=== PATIENT | male | born 1940 | race Caucasian/White ===

== ENCOUNTER 2020-06-06 15:36 | Outpatient (REF) | payer MEDICARE, SELFPAY ==
[2020-06-06 17:02] LABS: MANUAL DIFF FLAG NO
[2020-06-06 17:07] LABS: Basophils Absolute Auto 0.1 X10*3/uL (0.0-0.2); Basophils Percent Auto 0.6 % (0-2); Eosinophils Absolute Auto 0.2 X10*3/uL (0.0-0.4); Eosinophils Percent Auto 1.9 % (0-4); Hematocrit 45.9 % (42-52); Hemoglobin 15.2 g/dl (14.0-18.0); Imm Gran Abs Auto 0.03 X10*3/uL (0.00-0.03); Imm Gran Pct Auto 0.3 % (0.0-0.4); Lymphocytes Absolute Auto 2.3 X10*3/uL (1.2-4.9); Lymphocytes Percent Auto 25.8 % (20-40); Mean Corpuscular HGB Conc 33.1 g/dl (31.0-36.0); Mean Corpuscular Volume 93.7 fL (80-98); Monocytes Absolute Auto 0.9 X10*3/uL (0.1-1.2); Monocytes Percent Auto 10.4 % (2-11); Neutrophils Absolute Auto 5.3 X10*3/uL (2.0-8.3); Platelet Count 211 X10*3/uL (160-400); White Blood Count 8.7 X10*3/uL (4.8-10.8)
[2020-06-06 17:26] LABS: B Type Natriuretic Peptide 55 pg/mL (<100)
[2020-06-06 17:28] LABS: Alanine Aminotransferase 15 U/L (0-40); Albumin Level 4.1 g/dL (3.5-5.0); Alkaline Phosphatase 56 U/L (39-117); Anion Gap 10 (12-20); Aspartate Amino Transferase 18 U/L (5-37); Bilirubin Total 0.8 mg/dL (0.0-1.0); Blood Urea Nitrogen 21 mg/dL (9-16); Calcium 8.8 mg/dL (8.4-10.2); Carbon Dioxide 26 mmol/L (22-29); Chloride 105 mmol/L (96-108); Estimated Glomerular Filt Rate > 60; Glucose Random 81 mg/dL (60-115); Potassium 4.3 mmol/l (3.3-5.1); Sodium 137 mmol/L (135-145); Total Protein 6.7 g/dL (6.5-8.0)
== END 2020-06-06 15:37 | disposition home or self-care (01) ==
LOC: HO.LAB 15:36
PROVIDERS: PCP Internal Medicine Medical Oncology; Visit Provider Internal Medicine Medical Oncology
DX: I10 Essential (primary) hypertension (principal); E66.9 Obesity, unspecified; E78.5 Hyperlipidemia, unspecified; J44.9 Chronic obstructive pulmonary disease, unspecified; Z86.59 Personal history of other mental and behavioral disorders
CPT/HCPCS: 36415; 80053; 83880; 85025

== ENCOUNTER → 2020-07-02 09:36 | Outpatient (BNVA) | payer MEDICARE, SELFPAY | PROVIDERS: PCP Internal Medicine Medical Oncology; Visit Provider Internal Medicine | DX: R06.00 Dyspnea, unspecified (principal) | CPT/HCPCS: 99202 ==

== ENCOUNTER 2020-07-09 14:04 | Outpatient (REF) | payer MEDICARE, SELFPAY ==
--- NOTE | 2020-07-09 | PFT_ITS ---
Forced vital capacity, FEV1, [id number], and MVV are all normal. Post bronchodilator therapy, there is no significant change. Total lung capacity and residual volume normal. Diffusion capacity normal. CONCLUSION: Normal pulmonary function test. MD DAYNA Dykes/NEELAM / [id number]
== END 2020-07-09 14:05 | disposition home or self-care (01) ==
LOC: HO.RESP 14:04
PROVIDERS: PCP Internal Medicine Medical Oncology; Visit Provider Internal Medicine Medical Oncology
DX: R06.02 Shortness of breath (principal); J44.9 Chronic obstructive pulmonary disease, unspecified; I10 Essential (primary) hypertension; E66.9 Obesity, unspecified
CPT/HCPCS: 94060; 94727; 94729

== ENCOUNTER → 2020-07-30 13:54 | Outpatient (REF) | payer MEDICARE, SELFPAY ==
--- NOTE | 2020-07-30 14:00 | CA_ITS ---
Transthoracic Echocardiogram Patient (Last, First, Middle): Jed Weinstein, Gender: Male Date of : 1940 Age: 79 Procedure Date: 07/30/2020 Procedure Type: Transthoracic Echocardiogram Location: OP Height: 180.34 cm Weight: 97.52 kg BSA: 2.17 m2 Heart Rate: bpm BP: 120 / 52 mmHg Credit Collector: Referring MD: Franky Oro MD Symptoms: I10 HTN, J44.9 COPD,R06.02 SOB E66.9 OBESITY Study Quality: Good ECG Rhythm: Sinus Conclusions: - The left ventricular systolic function is normal. The visually estimated ejection fraction is between 60-65%. - There is mild calcification of the aortic valve. - No obvious valvular pathology seen on this study. Findings Left Ventricle Normal left ventricular cavity size. There is normal left ventricular wall thickness. The left ventricular systolic function is normal. The visually estimated ejection fraction is between 60-65%. There is no evidence of regional wall motion abnormalities. Diastolic function is normal for age. Right Ventricle Normal right ventricular cavity size and systolic function. Atria The left atrium is mildly dilated. The right atrium is normal in size. Aortic Valve There is a normal trileaflet aortic valve. There is mild calcification of the aortic valve. There is no aortic valve stenosis. There is no aortic valve regurgitation. Mitral Valve The mitral valve appears normal. There is trace mitral valve regurgitation. There is no mitral valve stenosis. Pulmonic Valve The pulmonic valve was not well visualized. Tricuspid Valve Normal tricuspid valve structure. There is trace tricuspid valve regurgitation. The pulmonary artery systolic pressure is normal. Great Vessels The aortic annulus, sinuses of valsalva, asc aorta, and aortic arch are normal in size. Venous The inferior vena cava is normal in size and collapses greater than 50% with inspiration. Pericardium/Pleural There is no evidence of pericardial effusion. Prior Study Comparison No prior study available for comparison. Recommendations, Care & Conclusions No obvious valvular pathology seen on this study. Measurements 2D Linear Measurements RVIDd: 3.34 RVIDd Index: 1.54 IVSd: 0.99 0.6-0.9/0.6-1.0 cm LVIDd: 5.56 3.9-5.3/4.2-5.9 cm LVIDd Index: 2.56 2.4-3.2/2.2-3.1 cm/m2 LVIDs: 3.30 2.0-3.6 cm LVPWd: 1.21 0.7-1.1 cm Ao Root: 3.50 2.1-3.5 cm LA Diam: 4.60 2.7-3.8/3.0-4.0 cm LAIDs Index: 2.12 1.5-2.3 cm/m2 LV Mass: 306.29 67-162/88-224 g LV Mass Index: 141.15 43-95/49-115 g/m2 LVOT Diam: 2.20 3.0+(-)1.3 cm 2D Systolic Function EF 4C: 59.20 >55% EF 2C: 57.60 >55% EF BiP: 58.30 >55% Mitral Valve MV Pk E: 0.84 MV PK A: 0.69 MV Decel Time: 288.00 E/A: 1.20 E'Lateral: 8.05 E'Medial: 6.64 E/E' Med: 12.60 E/E' Lat: 10.40 Aortic Valve AoV Pk Brandon: 1.95 AoV Mn Brandon: 1.44 AoV VTI: 0.42 AoV Pk Grad: 15.00 Aov Mn Grad: 9.00 LOLA Cont.VTI: 2.31 LVOT LVOT Pk Brandon: 1.29 LVOT Mn Brandon: 0.78 LVOT VTI: 0.25 LVOT Pk Grad: 7.00 LVOT Mn Grad: 3.00 LVOT Diam: 2.20 LVOT Area: 3.80 Diastolic Function MV Pk E: 0.84 MV Pk A: 0.69 E/A: 1.20 E'Medial: 6.64 E/E' Med: 12.60 E' Laterial: 8.05 E/E' Lat: 10.40 Tricuspid Valve TR Pk Brandon: 2.36 TR Pk Grad: 22.00 RA Press: 3.00 RVSP: 25.00 Great Vessels Aorta Ao Root-2D: 3.50 2.0-3.7 cm Ao Asc: 3.50 2.1-3.4 cm Ao Arch: 2.90 Updated in Other Vendor System with Status of Final Eyad Begum MD electronically signed on 07/31/2020 11:08:11 AM with status of Final
== END ==
LOC: HO.CARD 13:54
PROVIDERS: PCP Internal Medicine Medical Oncology; Visit Provider Internal Medicine Medical Oncology
DX: R06.02 Shortness of breath (principal); I10 Essential (primary) hypertension; J44.9 Chronic obstructive pulmonary disease, unspecified; E66.9 Obesity, unspecified
CPT/HCPCS: 93306

== ENCOUNTER → 2020-08-09 10:16 | Outpatient (BNVA) | payer MEDICARE, SELFPAY | PROVIDERS: PCP Internal Medicine Medical Oncology; Referring Provider Internal Medicine Medical Oncology; Visit Provider Internal Medicine | DX: R06.00 Dyspnea, unspecified (principal) | CPT/HCPCS: 99212 ==

== ENCOUNTER 2021-01-04 09:52 | Emergency (ER) | payer MEDICARE, SELFPAY ==
--- NOTE | ~2021-01-04 | XR_ITS ---
EXAMINATION: CHEST AND LEFT SHOULDER. CLINICAL INFORMATION: SOB. Left shoulder pain.. COMPARISON: None TECHNIQUE: Chest one view. Left shoulder 3 views. FINDINGS: Chest: The lungs are well-expanded and clear of acute process. Heart size and pulmonary vascularity is normal. There is mild spondylosis of dorsal spine. No lytic process. Left shoulder: There is mild reduction of glenohumeral joint space in AC joint space with periapical spurring. No visible acute fracture or dislocation seen. The soft tissues are normal. XR/XR chest 1V IMPRESSION: Unremarkable chest exam. Mild degenerative changes left shoulder joint. No acute fracture, dislocation or loose bodies.
--- NOTE | ~2021-01-04 | XR_ITS ---
EXAMINATION: CHEST AND LEFT SHOULDER. CLINICAL INFORMATION: SOB. Left shoulder pain.. COMPARISON: None TECHNIQUE: Chest one view. Left shoulder 3 views. FINDINGS: Chest: The lungs are well-expanded and clear of acute process. Heart size and pulmonary vascularity is normal. There is mild spondylosis of dorsal spine. No lytic process. Left shoulder: There is mild reduction of glenohumeral joint space in AC joint space with periapical spurring. No visible acute fracture or dislocation seen. The soft tissues are normal. XR/XR shoulder LT min 2V IMPRESSION: Unremarkable chest exam. Mild degenerative changes left shoulder joint. No acute fracture, dislocation or loose bodies.
--- NOTE | 2021-01-04 10:18 | ECG_ITS ---
Test Reason : WEAKNESS Blood Pressure : / mmHG Vent. Rate : 097 BPM Atrial Rate : 097 BPM P-R Int : 164 ms QRS Dur : 086 ms QT Int : 322 ms P-R-T Axes : 036 -25 036 degrees QTc Int : 408 ms Normal sinus rhythm Normal ECG No previous ECGs available Referred By: Loni Guan Electronically Signed By:Jalil Liao
--- NOTE | 2021-01-04 10:20 | ED_ITS ---
HPI - Weakness General Chief complaint: General Medical Stated complaint: MULTI COMPLAINTS Time Seen by Provider: 01/04/21 10:18 History of Present Illness HPI Narrative: Patient is 80 years old no cardiac history. Positive history of hypertension. Presented today with having pain to the left shoulder. It is worse with movement. Patient also complaining of pain to the right shoulder but not as severe. No focal chest pain. Feels very weak and tired. Patient claims he is not sleeping well. Feels no new leg swelling. No abdominal pain. No changes in voice. Positive generalized malaise. Patient denies any changes in medication. No vomiting. No diarrhea. No new medication. Related Data Home Medications Medication Instructions Recorded Confirmed bupropion HCl 100 mg tablet 100 mg PO BID 07/02/20 cod liver oil 1 cap PO DAILY 07/02/20 flu vacc 2019-21(65yr ml IM 07/02/20 up)-MF59C(PF) 60 mcg(15 mcgx4)/0.5 mL IM syringe latanoprost 0.005 % eye drops 1 drp OPHTHALMIC (EYE) BEDTIME 07/02/20 lisinopril 20 mg tablet 20 mg PO DAILY 07/02/20 vit C 250 mg-vit E 90 mg-zinc 40 1 tab PO BID 07/02/20 mg-copper 1 [id number] capsule Allergies Allergy/AdvReac Type Severity Reaction Status Date / Time No Known Allergies Allergy Verified 08/09/20 10:33 Review of Systems Review of Systems: Constitutional: No Weight loss, No Fever, No Chills, No Night Sweats, positive Fatigue, No Malaise ENT/Mouth: No Hearing loss, No Ear Pain, No Nasal Congestion, No Sinus Pain, No Hoarseness, No sore throat, No Rhinorrhea, No Swallowing Difficulty Eyes: No Eye Pain, No Swelling, No Redness, No Foreign Body, No Discharge, No Vision Changes Cardiovascular: No Chest Pain, No SOB, No Dyspnea on Exertion, No Orthopnea, No Edema, No Palpitations Respiratory: No Cough, No Sputum, No Wheezing, No Smoke Exposure, No Dyspnea Gastrointestinal: No Nausea, No Vomiting, No Diarrhea, No Constipation, No abdominal Pain, No Hematochezia, No Melena Genitourinary: no irregular bleeding, No Dysuria, No Urinary Frequency, No Hematuria, No Urinary Incontinence, No Urgency, No Flank Pain, No Urinary Flow Changes, No Hesitancy Musculoskeletal: Positive joint pain, No Myalgias, No Joint Swelling Skin: No Skin Lesions, No rash Neuro: No Weakness, No Numbness, No Paresthesias, No Loss of Consciousness, No Dizziness, No Headache Psych: No Anxiety/Panic, No Depression, No SI/HI/AH/VH, No Social Issues, Heme/Lymph: No Bruising, No Bleeding,No Lymphadenopathy Endocrine: No Polyuria, No Polydipsia, No Temperature Intolerance [facility] Past Medical History Attestation statement: The following information was validated with the patient. Medical History Dyspnea on exertion Social History Social History Patient Tobacco Use Status: Never used Tobacco Use of substances other than those prescribed or required for medical reasons: No Advance Directives: No Advance Directives Information Provided: Yes Physical Exam Vital Signs: Vital Signs: Last Vital Signs Temp 99.8 F 01/04/21 12:57 Pulse 100 01/04/21 12:57 Resp 24 H 01/04/21 12:57 BP 100/58 L 01/04/21 12:57 Pulse Ox 97 01/04/21 12:57 Body Mass Index 28.7 Appearance: Alert. Oriented X3. No acute distress. Eyes: Pupils equal, round and reactive to light. ENT: Pharynx normal. Neck: Normal inspection. Neck supple. No lymph nodes noted. No crepitus CVS: Normal heart rate and rhythm. Pulses normal. Normal S1 and S2 Respiratory: No respiratory distress. Breath sounds normal. No Wheezing. No rales Abdomen: Soft and nontender. No rigidity. No distention. good BS x4 Skin: Skin warm and dry. Normal skin color. Normal skin turgor. Extremities: No lower extremity edema. Neurovascular intact to all extremities. No Lacerations. No Rash. Good range of motion in bilateral right and left shoulder. Sensation over the deltoid intact. Distally neurovascularly intact. Pain reproducible with movement of the left shoulder. Neuro: Oriented X 3. No motor deficit. No sensory deficit. Moving all extermities. No slurred speech MDM - Weakness MDM Narrative Medical decision making narrative: Patient's white count was normal. Urine showed no evidence of infection. Patient's electrolyte was normal baseline BUN and creatinine. Chest x-ray showed no focal infiltrate. Patient's coronavirus test was negative. Patient's x-ray of the shoulder was negative. Patient's TSH was normal. No evidence for hypo thyroid. Patient's EKG is normal. First set of troponin is negative patient's symptoms ongoing for greater than 6 hours unlikely cardiac in origin with a poor history. Currently in stable condition will discharge patient home. Lab Data Result diagrams: 01/04/21 11:29 01/04/21 11:29 Labs: Lab Results 01/04/21 01/04/21 01/04/21 Range/Units 11:28 11:29 11:29 WBC 8.5 (4.8-10.8) X10*3/uL RBC 4.73 (4.60-5.80) X10*6/uL Hgb 14.8 (14.0-18.0) g/dl Hct 44.0 (42-52) % MCV 93.0 (80-98) fL MCH 31.3 (27.0-33.0) pg MCHC 33.6 (31.0-36.0) g/dl RDW 13.1 (11.0-16.0) % Plt Count 131 L D (160-400) X10*3/uL MPV 9.8 (9.4-12.4) fL Immature Gran % (Auto) 0.4 (0.0-0.4) % Neut % (Auto) 62.3 (45-73) % Lymph % (Auto) 21.8 (20-40) % [place] % (Auto) 15.3 H (2-11) % Eos % (Auto) 0.0 (0-4) % Baso % (Auto) 0.2 (0-2) % Lymph # (Auto) 1.9 (1.2-4.9) X10*3/uL [place] # (Auto) 1.3 H (0.1-1.2) X10*3/uL Eos # (Auto) 0.0 (0.0-0.4) X10*3/uL Baso # (Auto) 0.0 (0.0-0.2) X10*3/uL Abs Immat Gran (auto) 0.03 (0.00-0.03) X10*3/uL Absolute Neuts (auto) 5.3 (2.0-8.3) X10*3/uL Absolute Nucleated RBC 0.000 (0.0-0.012) X10*3/uL Nucleated RBC % (auto) 0.0 (0.0-0.2) /100WBC Smear Tech's Comments VERIFIED Hold Blue Top SEE NOTE Sodium (135-145) mmol/L Potassium (3.3-5.1) mmol/L Chloride (96-108) mmol/L Carbon Dioxide (22-29) mmol/L Anion Gap (12-20) BUN (9-16) mg/dL Creatinine (0.5-1.4) mg/dL Estim Creat Clear Calc Estimated GFR Random Glucose (60-115) mg/dL Calcium (8.4-10.2) mg/dL Troponin I High Sens (<3.5-35.0) ng/L B-Natriuretic Peptide (<100) pg/mL TSH (0.32-4.0) uIU/mL Urine Color DARK YELLOW Urine Appearance CLEAR Urine pH 6.0 (5.0-8.0) Ur Specific [place] 1.025 (1.005-1.025) Urine Protein 2+ H (NEG-TRACE) MG/DL Urine Glucose (UA) NEG (NEG) MG/DL Urine Ketones 15 (NEG) MG/DL Urine Blood NEG (NEG) Urine Nitrite NEG (NEG) Ur Leukocyte Esterase NEG (NEG) Urine RBC 0 (0) /HPF Urine WBC 0 (0-4) /HPF Ur Squamous Epith Cells NONE /LPF Urine Bacteria NONE /LPF Hyaline Casts 0-2 /LPF Urine Mucus 2+ /LPF Coronavirus (PCR) (Negative) SARS-CoV-2 (PCR) Influenza Type A (PCR) (Negative) Influenza Type B (PCR) (Negative) RSV RNA Qual (PCR) (Negative) 01/04/21 01/04/21 01/04/21 Range/Units 11:29 11:29 11:42 WBC (4.8-10.8) X10*3/uL RBC (4.60-5.80) X10*6/uL Hgb (14.0-18.0) g/dl Hct (42-52) % MCV (80-98) fL MCH (27.0-33.0) pg MCHC (31.0-36.0) g/dl RDW (11.0-16.0) % Plt Count (160-400) X10*3/uL MPV (9.4-12.4) fL Immature Gran % (Auto) (0.0-0.4) % Neut % (Auto) (45-73) % Lymph % (Auto) (20-40) % [place] % (Auto) (2-11) % Eos % (Auto) (0-4) % Baso % (Auto) (0-2) % Lymph # (Auto) (1.2-4.9) X10*3/uL [place] # (Auto) (0.1-1.2) X10*3/uL Eos # (Auto) (0.0-0.4) X10*3/uL Baso # (Auto) (0.0-0.2) X10*3/uL Abs Immat Gran (auto) (0.00-0.03) X10*3/uL Absolute Neuts (auto) (2.0-8.3) X10*3/uL Absolute Nucleated RBC (0.0-0.012) X10*3/uL Nucleated RBC % (auto) (0.0-0.2) /100WBC Smear Tech's Comments Hold Blue Top Sodium 137 (135-145) mmol/L Potassium 4.5 (3.3-5.1) mmol/L Chloride 101 (96-108) mmol/L Carbon Dioxide 25 (22-29) mmol/L Anion Gap 16 (12-20) BUN 21 H (9-16) mg/dL Creatinine 1.35 (0.5-1.4) mg/dL Estim Creat Clear Calc 49.4 Estimated GFR 51 Random Glucose 107 (60-115) mg/dL Calcium 8.9 (8.4-10.2) mg/dL Troponin I High Sens 9.4 (<3.5-35.0) ng/L B-Natriuretic Peptide 69 (<100) pg/mL TSH 0.37 (0.32-4.0) uIU/mL Urine Color Urine Appearance Urine pH (5.0-8.0) Ur Specific [place] (1.005-1.025) Urine Protein (NEG-TRACE) MG/DL Urine Glucose (UA) (NEG) MG/DL Urine Ketones (NEG) MG/DL Urine Blood (NEG) Urine Nitrite (NEG) Ur Leukocyte Esterase (NEG) Urine RBC (0) /HPF Urine WBC (0-4) /HPF Ur Squamous Epith Cells /LPF Urine Bacteria /LPF Hyaline Casts /LPF Urine Mucus /LPF Coronavirus (PCR) NEGATIVE (Negative) SARS-CoV-2 (PCR) Cancelled Influenza Type A (PCR) NEGATIVE (Negative) Influenza Type B (PCR) NEGATIVE (Negative) RSV RNA Qual (PCR) NEGATIVE (Negative) Discharge Plan Discharge Clinical Impression: Acute shoulder pain Patient Disposition: Home, Self-Care Instructions: Arthralgia (ED) Prescriptions: No Action bupropion HCl 100 mg tablet 100 mg PO BID RF: 0 lisinopril 20 mg tablet 20 mg PO DAILY RF: 0 latanoprost 0.005 % drops 1 drp ophthalmic (eye) BEDTIME RF: 0 PreserVision AREDS-2 [id number] gd-bcmj-mc-mg capsule 1 tab PO BID RF: 0 cod liver oil Capsule 1 cap PO DAILY RF: 0 Fluad Quad 2020-21(65y up)(PF) 60 mcg (15 mcg x 4)/0.5 mL syringe IM RF: 0 Referrals: Franky Oro MD [Primary Care Provider] - 2 days
[2021-01-04 10:51] VITALS: BP 112/54; PULSE 100; RESP 16; TEMP 37.7; O2SAT 97; BMI 28.7
[2021-01-04 11:37] LABS: Imm Gran Abs Auto 0.03 X10*3/uL (0.00-0.03); MANUAL DIFF FLAG SCAN; PLT CLUMP 1; SCAN SMEAR FLAG 1
[2021-01-04 11:39] VITALS: BP 104/56; PULSE 98; RESP 18; TEMP 37.3; O2SAT 97
[2021-01-04 11:39] LABS: Basophils Percent Auto 0.2 % (0-2); Hemoglobin 14.8 g/dl (14.0-18.0); Imm Gran Pct Auto 0.4 % (0.0-0.4); Lymphocytes Absolute Auto 1.9 X10*3/uL (1.2-4.9); Lymphocytes Percent Auto 21.8 % (20-40); Mean Corpuscular HGB Conc 33.6 g/dl (31.0-36.0); Mean Corpuscular Hemoglobin 31.3 pg (27.0-33.0); Mean Platelet Volume 9.8 fL (9.4-12.4); Monocytes Absolute Auto 1.3 X10*3/uL (0.1-1.2); Monocytes Percent Auto 15.3 % (2-11); Neutrophils Absolute Auto 5.3 X10*3/uL (2.0-8.3); Neutrophils Percent Auto 62.3 % (45-73); Platelet Count 131 X10*3/uL (160-400); Red Blood Count 4.73 X10*6/uL (4.60-5.80); Red Cell Distribution Width 13.1 % (11.0-16.0); White Blood Count 8.5 X10*3/uL (4.8-10.8)
[2021-01-04 11:42] LABS: Glucose Urine UA NEG (NEG); Leukocyte Esterase Urine NEG (NEG); Nitrite Urine NEG (NEG); Specific Gravity - Urine 1.025 (1.005-1.025); Urine Blood NEG (NEG); Urine Ketones 15 MG/DL (NEG); Urine Protein 2+ MG/DL (NEG-TRACE)
[2021-01-04 11:47] LABS: Appearance Urine CLEAR; Color Urine DARK YELLOW
[2021-01-04 11:58] LABS: Anion Gap 16 (12-20); Blood Urea Nitrogen 21 mg/dL (9-16); Calcium 8.9 mg/dL (8.4-10.2); Carbon Dioxide 25 mmol/L (22-29); Chloride 101 mmol/L (96-108); Creatinine Clr Calc Pharmacy 49.4; Estimated Glomerular Filt Rate 51; Glucose Random 107 mg/dL (60-115); Potassium 4.5 mmol/L (3.3-5.1); Sodium 137 mmol/L (135-145)
[2021-01-04 12:03] LABS: SLIDE REVIEW VERIFIED
[2021-01-04 12:04] LABS: B Type Natriuretic Peptide 69 pg/mL (<100); Troponin-I High Sensitivity 9.4 ng/L (<3.5-35.0)
[2021-01-04 12:19] LABS: TSH reflex Free T4 0.37 uIU/mL (0.32-4.0)
[2021-01-04 12:21] LABS: Hyaline Casts Urine 0-2 /LPF; Mucus Urine 2+ /LPF; RBC Urine 0 /HPF (0); WBC Urine 0 /HPF (0-4)
[2021-01-04 12:37] LABS: Influenza A PCR NEGATIVE (Negative); Influenza B PCR NEGATIVE (Negative); Resp Syncy Virus RNA Qual PCR NEGATIVE (Negative); SARS COV2 PCR INHOUSE NEGATIVE (Negative)
[2021-01-04 12:57] VITALS: BP 100/58; PULSE 100; RESP 24; TEMP 37.7; O2SAT 97
== END 2021-01-04 14:30 | disposition home or self-care (01) ==
PROVIDERS: Emergency Provider Emergency Medicine Emergency Medical Services; PCP Internal Medicine Medical Oncology
DX: M25.512 Pain in left shoulder (principal); Z20.822 Contact with and (suspected) exposure to COVID-19; R53.81 Other malaise; I10 Essential (primary) hypertension
CPT/HCPCS: 0241U; 36415; 71045; 73030; 80048; 81001; 83880; 84443; 84484; 85025; 93005; 99284; U0003; U0005

== ENCOUNTER → 2021-01-18 12:34 | Outpatient (BNVA) | payer MEDICARE, SELFPAY | PROVIDERS: Visit Provider Physician Assistant | DX: M54.12 Radiculopathy, cervical region (principal) | CPT/HCPCS: 99202 ==

== ENCOUNTER → 2021-01-28 13:52 | Outpatient (BNVA) | payer MEDICARE, SELFPAY | PROVIDERS: Visit Provider Internal Medicine | DX: R06.00 Dyspnea, unspecified (principal); I10 Essential (primary) hypertension | CPT/HCPCS: 99202 ==

== ENCOUNTER → 2021-02-11 07:53 | Outpatient (REF) | payer MEDICARE, SELFPAY ==
--- NOTE | ~2021-02-11 | NM_ITS ---
EXERCISE MYOCARDIAL PERFUSION STUDY INDICATION: Shortness of breath, assess for coronary disease and ischemia TECHNIQUE: The patient was brought in for an exercise perfusion study on 02/11/2021. Patient performed exercise as per Stan protocol and was injected 35 mCi of sestamibi once target heart rate was achieved. Images were obtained using the SPECT gamma camera interlaced with the gating device. Images were obtained in supine position. Resting perfusion study was performed on 02/13/2021. Patient was administered 35 mCi of sestamibi intravenously at rest. Images were then obtained in supine position. Total DLP 102mGy-cm. Images were processed with the software and compared side to side in short axis, horizontal long axis and vertical long axis views. FINDINGS: Raw images were reviewed. The stress perfusion study showed diminished tracer uptake along the inferior wall from the basal to mid portions. With CT attenuation correction there is significant improvement testing diaphragmatic attenuation artifact. The gated study shows normal LV systolic function with calculated LVEF of 69%. LV cavity is normal in size. The gated study shows normal wall thickening and contraction of segments. Resting study shows diminished tracer uptake along the inferior wall. With CT attenuation correction, there is improvement suggesting diaphragmatic artifact. Gating at rest reveals normal wall motion with ejection fraction at 55%. The findings are consistent with fixed reversible defect likely from diaphragmatic attenuation artifact. NM/NM cardiolite stress test IMPRESSION: 1. Myocardial perfusion imaging study shows likely normal myocardial perfusion. Fixed inferior defect suspected to be from diaphragmatic attenuation artifact. 2. Gated LVEF is 69% during stress and 55% during rest.. 3. Transient ischemic dilatation not present. EKG component of the test reported separately.
--- NOTE | 2021-02-11 07:59 | CA_ITS ---
Acquisition Time: 2021-02-11 08:04:27 Total Exercise Time: 00:05:01 Test Indications: Dyspnea Medications: LISINOPRIL BUPROPION Protocol: JACQUELYN Max HR: 206 BPM 147% of Pred: 140 BPM Max BP: 148/038 mmHG Max Work Load: 4.6 METS Exercise stress nuclear using Jacquelyn protocol. Test motified as pt was unable to walk faster on the treadmill. Pt tolerated well, denies any anginal sx. EKG with no ischemic changes suggestive of ischemia, occasional PVC's. Nuclear images to follow. Normotensive response to exercise. Test reviewed with Dr. Cheung. Referred By: Eyad Begum Overread By: Margarita Cotter NP
== END ==
LOC: HO.CARD 07:53
PROVIDERS: Visit Provider Internal Medicine
DX: R06.00 Dyspnea, unspecified (principal)
CPT/HCPCS: 78452; 93017; A9500

== ENCOUNTER 2021-08-14 10:21 | Outpatient (REF) | payer MEDICARE, SELFPAY ==
[2021-08-14 10:38] LABS: MANUAL DIFF FLAG NO
[2021-08-14 10:51] LABS: Basophils Percent Auto 0.5 % (0-2); Eosinophils Absolute Auto 0.2 X10*3/uL (0.0-0.4); Hemoglobin 16.4 g/dl (14.0-18.0); Imm Gran Abs Auto 0.01 X10*3/uL (0.00-0.03); Imm Gran Pct Auto 0.1 % (0.0-0.4); Lymphocytes Absolute Auto 2.1 X10*3/uL (1.2-4.9); Lymphocytes Percent Auto 28.1 % (20-40); Mean Corpuscular HGB Conc 32.8 g/dl (31.0-36.0); Mean Corpuscular Hemoglobin 30.4 pg (27.0-33.0); Mean Corpuscular Volume 92.6 fL (80.0-98.0); Mean Platelet Volume 9.3 fL (9.4-12.4); Neutrophils Absolute Auto 4.1 x10*3/uL (2.0-8.3); Neutrophils Percent Auto 55.3 % (45-73); Platelet Count 220 X10*3/uL (160-400); Red Cell Distribution Width 12.9 % (11.0-16.0); White Blood Count 7.3 X10*3/uL (4.8-10.8)
[2021-08-14 11:17] LABS: Alanine Aminotransferase 14 U/L (0-40); Albumin Level 4.3 g/dL (3.5-5.0); Alkaline Phosphatase 63 U/L (39-117); Anion Gap 13 (12-20); Aspartate Amino Transferase 15 U/L (5-37); Bilirubin Total 0.9 mg/dL (0.0-1.0); Blood Urea Nitrogen 20 mg/dL (9-16); Carbon Dioxide 25 mmol/L (22-29); Chloride 106 mmol/L (96-108); Cholesterol 177 mg/dL; Estimated Glomerular Filt Rate 51; Glucose Fasting 113 mg/dL (60-99); HDL Cholesterol 39 mg/dL; LDL Cholesterol Calculated 104 mg/dl; Potassium 4.8 mmol/L (3.3-5.1); Sodium 139 mmol/L (135-145); Total Protein 7.3 g/dL (6.5-8.0); Triglycerides 170 mg/dL
[2021-08-14 11:42] LABS: Prostate Specific Antigen 2.72 ng/mL (<0.05-4.0)
== END 2021-08-14 10:22 | disposition home or self-care (01) ==
LOC: HO.LAB 10:21
PROVIDERS: PCP Internal Medicine Medical Oncology; Visit Provider Internal Medicine Medical Oncology
DX: I10 Essential (primary) hypertension (principal); E78.5 Hyperlipidemia, unspecified; E66.9 Obesity, unspecified
CPT/HCPCS: 36415; 80053; 80061; 84153; 85025

== ENCOUNTER 2021-12-12 15:49 | Outpatient (REF) | payer MEDICARE, SELFPAY ==
--- NOTE | ~2021-12-12 | XR_ITS ---
EXAMINATION: XR FOOT, LEFT CLINICAL INFORMATION: Left lateral foot pain, no injury. COMPARISON: None TECHNIQUE: AP, lateral, and oblique views of the left foot. FINDINGS: There is no acute fracture or dislocation. The joint spaces are unremarkable. Mild degenerative spurring is seen at the base of the fifth metatarsal with mild nonacute deformity. The tarsal bones are normally aligned. Very small plantar and retrocalcaneal spurs are noted. The soft tissues are unremarkable. XR/XR foot LT min 3V IMPRESSION: 1. Mild degenerative spurring and nonacute deformity at the base of the fifth metatarsal may be degenerative in nature and/or secondary to old injury. No acute abnormality. 2. Very small degenerative calcaneal spurs.
== END 2021-12-12 15:50 | disposition home or self-care (01) ==
LOC: HO.XRAY 15:49
PROVIDERS: PCP Internal Medicine Medical Oncology; Visit Provider Internal Medicine Medical Oncology
DX: M79.672 Pain in left foot (principal)
CPT/HCPCS: 73630

== ENCOUNTER 2022-06-23 11:40 | Emergency (ER) | payer MEDICARE, SELFPAY ==
--- NOTE | ~2022-06-23 | XR_ITS ---
EXAMINATION: XR CHEST CLINICAL INFORMATION: Coughing and fever COMPARISON: None TECHNIQUE: Frontal view of the chest was obtained. FINDINGS: The lungs are well-expanded with patchy density seen in the right midlung likely artifact. Otherwise the rest of the lungs are clear. Heart size is mildly enlarged. Pulmonary vascularity is normal. No gross bony abnormality seen. XR/XR chest 1V IMPRESSION: 1. Mild cardiomegaly. No acute process seen. 2. Patchy density right midlung likely artifact.
[2022-06-23 11:42] VITALS: BP 122/52; PULSE 79; RESP 18; TEMP 37; O2SAT 96; BMI 30.1
[2022-06-23 13:12] VITALS: BP 124/55; PULSE 72; RESP 16; TEMP 36.9; O2SAT 96
--- NOTE | 2022-06-23 13:24 | ED_ITS ---
HPI - Male Genitourinary General Chief complaint: Urogenital-Male Stated complaint: ? Urinary Tract Infection Time Seen by Provider: 06/23/22 13:11 Source: patient Mode of arrival: ambulatory Limitations: no limitations History of Present Illness HPI Narrative: 81-year-old male came in for evaluation of generalized weakness and fever. Symptoms started 3 days ago with intermittent fever and chills, overall gener alized weakness with coughing. 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 No abdominal pain, no nausea, no vomiting, normal bowel movement. Related Data Home Medications Medication Instructions Recorded Confirmed cod liver oil 1 cap PO DAILY 07/02/20 01/28/21 latanoprost 0.005 % eye drops 1 drp ophthalmic (eye) BEDTIME 07/02/20 01/28/21 lisinopril 20 mg tablet 20 mg PO DAILY 07/02/20 01/28/21 vit C 250 mg-vit E 90 mg-zinc 40 1 tab PO BID 07/02/20 01/28/21 mg-copper 1 [id number]-[id number] capsule (PreserVision AREDS-2) bupropion HCl 100 mg tablet 200 mg PO BID 01/28/21 01/28/21 Previous Rx's Medication Instructions Recorded levofloxacin 750 mg tablet 750 mg PO DAILY #14 tabs 06/23/22 Allergies Allergy/AdvReac Type Severity Reaction Status Date / Time No Known Allergies Allergy Verified 01/28/21 14:25 Review of Systems Review of Systems: All other systems are reviewed and are negative Constitutional: Reports as per HPI and Reports no additional constitutional complaints Eyes: Reports as per HPI and Reports no additional eye complaints Reports system reviewed and no additional complaints, except as documented Cardiovascular: Reports as per HPI and Reports no additional cardiovascular complaints Respiratory: Reports as per HPI and Reports no additional respiratory complaints Gastrointestinal: Reports as per HPI and Reports no additional gastrointestinal complaints Genitourinary: Reports no additional female genitourinary complaints Musculoskeletal: Reports no additional musculoskeletal complaints Skin/Breast: Reports system reviewed and no additional complaints, except as docu Psychiatric: Reports no additional psychiatric complaints Endocrine: Reports no additional endocrine complaints Hematologic/Lymphatic: Reports no additional hematologic/lymphatic complaints Allergic/Immunologic: Reports no additional allergic/immunologic complaints Reports system reviewed and no additional complaints, except as documented and Reports Abnormal speech present COUNT INCLUDES THE [facility] Past Medical History Medical History Dyspnea on exertion Surgical History History of breast lump/mass excision History of inguinal hernia repair, bilateral History of laparoscopic cholecystectomy History of lumbosacral spine surgery Family History Family History Father No problems noted. Mother No problems noted. Social History Social History Patient Tobacco Use Status: Never used Tobacco Advance Directives: No Advance Directives Information Provided: Yes Current occupational status: retired Current occupation: rt hand Physical Exam Vital Signs: Vital Signs: Last Vital Signs Temp 98.3 F 06/23/22 15:39 Pulse 62 06/23/22 15:39 Resp 20 06/23/22 15:39 BP 115/54 L 06/23/22 15:39 Pulse Ox 97 06/23/22 15:39 O2 Del Method 06/23/22 15:39 BMI result Body Mass Index 30.1 Vital signs have been reviewed as appeared to be correct. Blood pressure normal. Heart rate normal. Respiration rate normal. Temperature normal. Oxygen saturation normal. Appearance: Alert. Oriented X3. No acute distress. Head: Normal external exam. Normocephalic. Atraumatic. No Wise signs noted. No raccoon eyes noted Eyes: PERRLA. EOMI. Conjunctiva and sclera normal. Eyelids normal. ENT: TM's Normal. Pharynx normal. Uvula midline. Moist mucous membranes. No trismus noted. No drooling noted. No muffled voice noted. Neck: Normal inspection. Neck supple. FROM. No adenopathy. Thyroid Normal. No meningeal signs. No neck mass noted. CVS: Normal heart rate and rhythm. Heart sound normal. No murmurs noted. Pulses normal throughout. Respiratory: No respiratory distress. Painless inspiration. Breath sounds normal. No wheezes/rales/rhonchi noted. Chest nontender. No accessory muscle usage noted or decreased air movement noted. Abdomen: Soft and nontender. Bowel sounds normal in all 4 quadrants. No distention noted. No organomegaly noted. No visible injury noted. Back: No CVA tenderness. Full range of motion noted. Skin: Skin warm and dry. Normal skin color. Normal skin turgor. No rashes/lesions/lacerations noted. Extremities: No lower extremity edema. Extremities exhibit normal range of motion. Extremities nontender. Neuro: Oriented X 3. Cranial nerve exam: II-XII are grossly intact No motor deficit. No sensory deficit. Reflexes normal. Course Course Course Narrative: 81-year-old male came in for generalized weakness patient found to have a UTI. Start the patient on Levaquin. Patient was instructed to drink plenty of fluids. Patient will need to follow-up with a urologist. [facility] - Male Genitourinary Lab Data Attestation: I reviewed the patient's lab results. Result diagrams: 06/23/22 13:41 06/23/22 13:41 Labs: Lab Results 06/23/22 06/23/22 06/23/22 Range/Units 13:41 13:41 13:41 WBC 7.5 (4.8-10.8) X10*3/uL RBC 4.36 L (4.60-5.80) X10*6/uL Hgb 13.4 L (14.0-18.0) g/dl Hct 40.4 L (42.0-52.0) % MCV 92.7 (80.0-98.0) fL MCH 30.7 (27.0-33.0) pg MCHC 33.2 (31.0-36.0) g/dl RDW 13.0 (11.0-16.0) % Plt Count 162 D (160-400) X10*3/uL MPV 9.5 (9.4-12.4) fL Immature Gran % (Auto) 0.3 (0.0-0.4) % Neut % (Auto) 72.8 (45-73) % Lymph % (Auto) 10.3 L (20-40) % [place] % (Auto) 15.9 H (2-11) % Eos % (Auto) 0.4 (0-4) % Baso % (Auto) 0.3 (0-2) % Lymph # (Auto) 0.8 L (1.2-4.9) X10*3/uL [place] # (Auto) 1.2 (0.1-1.2) X10*3/uL Eos # (Auto) 0.0 (0.0-0.4) X10*3/uL Baso # (Auto) 0.0 (0.0-0.2) X10*3/uL Abs Immat Gran (auto) 0.02 (0.00-0.03) X10*3/uL Absolute Neuts (auto) 5.5 (2.0-8.3) x10*3/uL Absolute Nucleated RBC 0.000 (0.0-0.012) X10*3/uL Nucleated RBC % (auto) 0.0 (0.0-0.2) /100WBC Sodium 138 (135-145) mmol/L Potassium 4.7 (3.3-5.1) mmol/L Chloride 105 (96-108) mmol/L Carbon Dioxide 25 (22-29) mmol/L Anion Gap 13 (12-20) BUN 20 H (9-16) mg/dL Creatinine 1.27 (0.5-1.4) mg/dL Estim Creat Clear Calc 52.8 Estimated GFR 54 Random Glucose 104 (60-115) mg/dL Calcium 8.6 D (8.4-10.2) mg/dL Total Bilirubin 0.6 (0.0-1.0) mg/dL Direct Bilirubin 0.3 (0.0-0.5) mg/dL AST 18 (5-37) U/L ALT 13 (0-40) U/L Alkaline Phosphatase 63 (39-117) U/L Troponin I High Sens 12.2 (<3.5-35.0) ng/L B-Natriuretic Peptide (<100) pg/mL Total Protein 5.8 L D (6.5-8.0) g/dL Albumin 3.4 L D (3.5-5.0) g/dL Lipase 72 (8-78) U/L Urine Color Urine Appearance Urine pH (5.0-9.0) Ur Specific [place] (1.005-1.025) Urine Protein (Neg-Trace) mg/dL Urine Glucose (UA) (Negative) mg/dL Urine Ketones (Negative) mg/dL Urine Blood (Negative) Urine Nitrite (Negative) Ur Leukocyte Esterase (Negative) Urine RBC (0-2) /HPF Urine WBC (0-5) /HPF Ur Squamous Epith Cells (0-2) /HPF Urine Bacteria (None Seen) Hyaline Casts (0-2) /LPF Influenza Type A (PCR) (Negative) Influenza Type B (PCR) (Negative) RSV RNA Qual (PCR) (Negative) SARS-CoV-2 RNA (RT-PCR) (Negative) 06/23/22 06/23/22 06/23/22 Range/Units 13:41 13:41 15:21 WBC (4.8-10.8) X10*3/uL RBC (4.60-5.80) X10*6/uL Hgb (14.0-18.0) g/dl Hct (42.0-52.0) % MCV (80.0-98.0) fL MCH (27.0-33.0) pg MCHC (31.0-36.0) g/dl RDW (11.0-16.0) % Plt Count (160-400) X10*3/uL MPV (9.4-12.4) fL Immature Gran % (Auto) (0.0-0.4) % Neut % (Auto) (45-73) % Lymph % (Auto) (20-40) % [place] % (Auto) (2-11) % Eos % (Auto) (0-4) % Baso % (Auto) (0-2) % Lymph # (Auto) (1.2-4.9) X10*3/uL [place] # (Auto) (0.1-1.2) X10*3/uL Eos # (Auto) (0.0-0.4) X10*3/uL Baso # (Auto) (0.0-0.2) X10*3/uL Abs Immat Gran (auto) (0.00-0.03) X10*3/uL Absolute Neuts (auto) (2.0-8.3) x10*3/uL Absolute Nucleated RBC (0.0-0.012) X10*3/uL Nucleated RBC % (auto) (0.0-0.2) /100WBC Sodium (135-145) mmol/L Potassium (3.3-5.1) mmol/L Chloride (96-108) mmol/L Carbon Dioxide (22-29) mmol/L Anion Gap (12-20) BUN (9-16) mg/dL Creatinine (0.5-1.4) mg/dL Estim Creat Clear Calc Estimated GFR Random Glucose (60-115) mg/dL Calcium (8.4-10.2) mg/dL Total Bilirubin (0.0-1.0) mg/dL Direct Bilirubin (0.0-0.5) mg/dL AST (5-37) U/L ALT (0-40) U/L Alkaline Phosphatase (39-117) U/L Troponin I High Sens (<3.5-35.0) ng/L B-Natriuretic Peptide 218 H (<100) pg/mL Total Protein (6.5-8.0) g/dL Albumin (3.5-5.0) g/dL Lipase (8-78) U/L Urine Color Dark Yellow Urine Appearance Cloudy Urine pH 6.0 (5.0-9.0) Ur Specific [place] 1.015 (1.005-1.025) Urine Protein 100 (2+) H (Neg-Trace) mg/dL Urine Glucose (UA) Negative (Negative) mg/dL Urine Ketones Trace (Negative) mg/dL Urine Blood Moderate (2+) H (Negative) Urine Nitrite Positive H (Negative) Ur Leukocyte Esterase Large (3+) H (Negative) Urine RBC 0-2 (0-2) /HPF Urine WBC >50 H (0-5) /HPF Ur Squamous Epith Cells 0-2 (0-2) /HPF Urine Bacteria 4+ (None Seen) Hyaline Casts 6-10 (0-2) /LPF Influenza Type A (PCR) NEGATIVE (Negative) Influenza Type B (PCR) NEGATIVE (Negative) RSV RNA Qual (PCR) NEGATIVE (Negative) SARS-CoV-2 RNA (RT-PCR) NEGATIVE (Negative) Imaging Data Chest x-ray: Attestation: I personally reviewed and interpreted this imaging study as follows: Radiologist's impression: 1.? Mild cardiomegaly. No acute process seen. 2.? Patchy density right midlung likely artifact. ? Discharge Plan Discharge Clinical Impression: Urinary tract infection Patient Disposition: Home, Self-Care Instructions: Urinary Tract Infection in Men (ED) Additional Instructions: Drink plenty of fluids, take antibiotic as prescribed. Prescriptions: New levofloxacin 750 mg tablet 750 mg PO DAILY Qty: 14 0RF No Action lisinopril 20 mg tablet 20 mg PO DAILY latanoprost 0.005 % drops 1 drp ophthalmic (eye) BEDTIME PreserVision AREDS-2 [id number] jl-lqsl-vx-mg capsule 1 tab PO BID Rx Instructions: give with food (meal/snack) cod liver oil Capsule 1 cap PO DAILY bupropion HCl 100 mg tablet 200 mg PO BID Referrals: Jonny Murphy MD [Physician] - Franky Oro MD [Primary Care Provider] -
[2022-06-23 13:49] LABS: MANUAL DIFF FLAG NO
[2022-06-23 13:50] LABS: Basophils Percent Auto 0.3 % (0-2); Eosinophils Percent Auto 0.4 % (0-4); Hematocrit 40.4 % (42.0-52.0); Hemoglobin 13.4 g/dl (14.0-18.0); Imm Gran Abs Auto 0.02 X10*3/uL (0.00-0.03); Imm Gran Pct Auto 0.3 % (0.0-0.4); Lymphocytes Absolute Auto 0.8 X10*3/uL (1.2-4.9); Lymphocytes Percent Auto 10.3 % (20-40); Mean Corpuscular HGB Conc 33.2 g/dl (31.0-36.0); Mean Corpuscular Hemoglobin 30.7 pg (27.0-33.0); Mean Corpuscular Volume 92.7 fL (80.0-98.0); Mean Platelet Volume 9.5 fL (9.4-12.4); Monocytes Absolute Auto 1.2 X10*3/uL (0.1-1.2); Monocytes Percent Auto 15.9 % (2-11); Neutrophils Absolute Auto 5.5 x10*3/uL (2.0-8.3); Neutrophils Percent Auto 72.8 % (45-73); Platelet Count 162 X10*3/uL (160-400); Red Blood Count 4.36 X10*6/uL (4.60-5.80); White Blood Count 7.5 X10*3/uL (4.8-10.8)
[2022-06-23 14:09] LABS: Alanine Aminotransferase 13 U/L (0-40); Albumin Level 3.4 g/dL (3.5-5.0); Alkaline Phosphatase 63 U/L (39-117); Anion Gap 13 (12-20); Aspartate Amino Transferase 18 U/L (5-37); Bilirubin Direct 0.3 mg/dL (0.0-0.5); Bilirubin Total 0.6 mg/dL (0.0-1.0); Blood Urea Nitrogen 20 mg/dL (9-16); Calcium 8.6 mg/dL (8.4-10.2); Carbon Dioxide 25 mmol/L (22-29); Chloride 105 mmol/L (96-108); Creatinine Clr Calc Pharmacy 52.8; Estimated Glomerular Filt Rate 54; Glucose Random 104 mg/dL (60-115); Lipase 72 U/L (8-78); Potassium 4.7 mmol/L (3.3-5.1); Sodium 138 mmol/L (135-145); Total Protein 5.8 g/dL (6.5-8.0)
[2022-06-23 14:16] LABS: B Type Natriuretic Peptide 218 pg/mL (<100); Troponin-I High Sensitivity 12.2 ng/L (<3.5-35.0)
[2022-06-23 14:32] LABS: Influenza A PCR NEGATIVE (Negative); Influenza B PCR NEGATIVE (Negative); Resp Syncy Virus RNA Qual PCR NEGATIVE (Negative); SARS COV2 PCR INHOUSE NEGATIVE (Negative)
[2022-06-23 15:38] LABS: Appearance Urine Cloudy; Color Urine Dark Yellow; Glucose Urine UA Negative (Negative); Leukocyte Esterase Urine Large (3+) (Negative); Nitrite Urine Positive (Negative); Specific Gravity - Urine 1.015 (1.005-1.025); UMIC TRIGGER UACC YES; Urine Blood Moderate (2+) (Negative); Urine Ketones Trace mg/dL (Negative); Urine Protein 100 (2+) mg/dL (Neg-Trace)
[2022-06-23 15:39] VITALS: BP 115/54; PULSE 62; RESP 20; TEMP 36.8; O2SAT 97
[2022-06-23 15:51] LABS: Bacteria Urine 4+ (None Seen); RBC Urine 0-2 /HPF (0-2); Squamous Epithelial Cell Urine 0-2 /HPF (0-2); UACC Culture Trigger YES; WBC Urine >50 /HPF (0-5)
[2022-06-23] MEDS: levoFLOXacin 750 MG TABLET PO (16:32)
== END 2022-06-23 16:55 | disposition home or self-care (01) ==
PROVIDERS: Emergency Provider Emergency Medicine; PCP Internal Medicine Medical Oncology
DX: N39.0 Urinary tract infection, site not specified (principal); B96.20 Unspecified Escherichia coli [E. coli] as the cause of diseases classified elsewhere; R50.9 Fever, unspecified; R06.00 Dyspnea, unspecified; Z20.822 Contact with and (suspected) exposure to COVID-19; I10 Essential (primary) hypertension; Z79.899 Other long term (current) drug therapy
CPT/HCPCS: 0241U; 71045; 80048; 80076; 81001; 83690; 83880; 84484; 85025; 87086; 87088; 87186; 99284

== ENCOUNTER 2022-11-10 08:14 | Outpatient (REF) | payer MEDICARE, SELFPAY ==
--- NOTE | ~2022-11-10 | XR_ITS ---
EXAMINATION: XR SHOULDER, RIGHT CLINICAL INFORMATION: Pain. COMPARISON: None available. TECHNIQUE: AP neutral, scapular Y, and axillary views of the right shoulder. FINDINGS: Bony alignment and mineralization are normal. The glenohumeral joint is intact and shows moderate peripheral osteophyte formation. The acromioclavicular and coracoclavicular intervals are normal. There is marked osteoarthritic change of the acromioclavicular joint. A distal acromial undersurface osteophyte is seen. No focal calcific tendinitis is noted. There is no foreign body. No right pneumothorax is seen. XR/XR shoulder RT min 2V IMPRESSION: 1. There is moderate osteoarthritic change of the right glenohumeral joint, and marked osteoarthritic change is seen of the right acromioclavicular joint. 2. Findings are consistent with right rotator cuff impingement. No calcific tendinitis is noted.
== END 2022-11-10 08:15 | disposition home or self-care (01) ==
LOC: HO.HOSX 08:14
PROVIDERS: Visit Provider Physician Assistant
DX: M19.011 Primary osteoarthritis, right shoulder (principal)
CPT/HCPCS: 73030; 99202

== ENCOUNTER 2023-01-05 13:00 | Outpatient (RCR) | payer MEDICARE, SELFPAY ==
[2022-11-27 07:56] VITALS: BP 110/60; PULSE 67; O2SAT 97
== END 2023-01-08 15:13 | disposition home or self-care (01) ==
LOC: HO.PTWFD 13:00
PROVIDERS: PCP Internal Medicine Medical Oncology; Visit Provider Physician Assistant
DX: M19.012 Primary osteoarthritis, left shoulder (principal)
CPT/HCPCS: 97110; 97140; 97150; 97162; 97535

== ENCOUNTER 2023-04-14 13:36 | Emergency (ER) | payer MEDICARE, SELFPAY ==
--- NOTE | ~2023-04-14 | CT_ITS ---
EXAMINATION: CT ABDOMEN AND PELVIS WITHOUT CONTRAST CLINICAL INFORMATION: Left lower quadrant/suprapubic pain. History of small bowel obstruction. COMPARISON: None available. TECHNIQUE: Multidetector volumetric imaging was performed from the superior aspect of the liver through the pubic symphysis. Sagittal and coronal reformatted images were obtained on the technologist's workstation. This CT examination was performed using dose optimization techniques as appropriate, variously including the following: *Automated exposure control *Adjustment of mA and/or kV according to patient size (this includes techniques or standardized protocols for targeted exams where dose is matched to indication/reason for exam; i.e. extremities or head) *Use of iterative reconstruction technique DLP: 803 mGy-cm FINDINGS: LUNG BASES: The visualized lung bases are unremarkable. LIVER, GALLBLADDER, AND BILIARY TREE: The liver is normal in size, shape, and attenuation. There is question of a 1 cm low-attenuation lesion in the posterior segment of the right lobe of the liver axial image 30. The gallbladder has been removed. There is no biliary duct dilatation. PANCREAS: Unremarkable. SPLEEN: Unremarkable. ADRENAL GLANDS: Unremarkable. KIDNEYS AND URETERS: The kidneys are normal in size, shape, and attenuation. No hydronephrosis, hydroureter, or calculi seen. No perinephric stranding. Bilateral renal cysts. No imaging follow-up recommended. BLADDER: Unremarkable. GASTROINTESTINAL TRACT: There is severe diverticulosis of the distal colon. No evidence of diverticulitis. Constipation. There are slightly dilated fluid and contrast filled loops of small bowel in the left side of the abdomen. Differential would include partial small bowel obstruction and ileus and there is oral contrast reaching the distal small bowel and right colon. No definite transition zone is seen. The appendix is not seen. There are no inflammatory changes in the right lower quadrant. ABDOMINAL WALL: Umbilical hernia containing fat. LYMPH NODES: Normal. VASCULAR: Unremarkable. PELVIC VISCERA: Prostate gland is slightly enlarged measuring 4 x 5.4 cm in AP and transverse dimension. OSSEOUS STRUCTURES: Degenerative changes of the spine and hip joints. CT/CT abdomen pelvis wo IV con IMPRESSION: Severe diverticulosis. Constipation. Slightly dilated fluid and contrast filled loops of small bowel in the left abdomen. No definite transition zone is seen. Differential would include partial small bowel obstruction and ileus. Slightly enlarged prostate gland. Question 1 cm liver lesion. This could be further evaluated with ultrasound or MRI or repeat CT with IV contrast. Fleischner guidelines were followed.
--- NOTE | 2023-04-14 13:56 | ED_ITS ---
HPI - Abdominal Pain General Chief Complaint: Abdominal Pain Stated Complaint: Stomach blockage Time Seen by Provider: 04/14/23 18:34 Source: patient Mode of arrival: ambulatory Limitations: no limitations History of Present Illness HPI narrative: w/PMHx OA, HTN, SBO, c/o lower abdominal pain x today, patients concerned for blockage. Last BM yesterday morning in triage list patient states that he had a CT scan here he was able to pass some gas and had a large bowel movement. He states pain is since resolved he denies any fevers chills cough chest pain or shortness of breath. Related Data Home Medications Medication Instructions Recorded Confirmed cod liver oil 1 cap PO DAILY 07/02/20 01/28/21 latanoprost 0.005 % eye drops 1 drp ophthalmic (eye) BEDTIME 07/02/20 01/28/21 lisinopril 20 mg tablet 20 mg PO DAILY 07/02/20 01/28/21 vit C 250 mg-vit E 90 mg-zinc 40 1 tab PO BID 07/02/20 01/28/21 mg-copper 1 [id number]-gzotzd capsule (PreserVision AREDS-2) bupropion HCl 100 mg tablet 200 mg PO BID 01/28/21 01/28/21 tadalafil 10 mg tablet 10 mg PO DAILY PRN 11/10/22 venlafaxine 50 mg tablet 50 mg PO DAILY 11/10/22 Previous Rx's Medication Instructions Recorded levofloxacin 750 mg tablet 750 mg PO DAILY #14 tabs 06/23/22 Allergies Allergy/AdvReac Type Severity Reaction Status Date / Time No Known Allergies Allergy Verified 11/10/22 11:19 Review of Systems Review of Systems Review of systems: General: Patient denies any fever chills recent illness or falls Musculoskeletal: Denies back pain or body aches or other injuries HEENT: denies headache, runny nose, ear pain Respiratory: denies shortness of breath, cough Cardiovascular: no chest pain or palpitations : denies dysuria, frequency Abdomen: no nausea vomiting lower abdominal pain Extremities: no swelling, no pain Skin: no diaphoresis Yes all other systems are reviewed and are negative PMFSH Past Medical History Medical History Dyspnea on exertion Surgical History History of breast lump/mass excision History of inguinal hernia repair, bilateral History of laparoscopic cholecystectomy History of lumbosacral spine surgery Family History Family History Father No problems noted. Mother No problems noted. Social History Social History Alcohol intake: unknown Patient Tobacco Use Status: Never used Tobacco Advance Directives: No Advance Directives Information Provided: Yes Current occupational status: retired Current occupation: rt hand Physical Exam ED Vital Signs: Vital Signs - 24 hr 04/14/23 13:57 Temperature 98.2 F Pulse Rate 49 L Respiratory Rate 18 Blood Pressure 118/45 L Pulse Oximetry 96 Oxygen Delivery Method Room Air BMI result Body Mass Index 30.8 General: Well-appearing well-nourished in no signs of distress HEENT: Normocephalic atraumatic? Neck: No signs of JVD, no masses no tenderness or lymphadenopathy Cardiovascular: Regular rate and rhythm Respiratory: Clear to auscultation bilaterally Abdomen: Soft mild tenderness to the right lower quadrant no masses Extremities: Normal pedal pulses no signs of edema Skin: Dry warm no rashes Back: No tenderness full ROM Course Course Course Narrative: RME: 82yo M w/PMHx OA, HTN, SBO, c/o lower abdominal pain x today, patients concerned for blockage. Last BM yesterday morning. denies N/V HR 48 in triage, +BS, abdomen soft with LLQ/suprapubic tenderness Labs, UA, CTAP w/IV & PO contrast ordered Full HPI, ROS and PE to be performed by primary ED provider. Medical Decision Making Medical Decision Making MDM Narrative: Patient looks well at this time he states that his intestinal blockage has resolved he is able have a bowel movement he does not want to stay here. He states he does have a surgeon that he follows up with he denies any fevers chills cough or shortness of breath this time. Differential Diagnosis Differential Diagnoses: The differential diagnosis associated with the presentation includes The differential includes but is not limited to Small-bowel obstruction acute intestinal blockage hernia dehydration electrolyte abnormality partial small- bowel obstruction or other acute abdominal process. Admission/Observation Consideration of admission/observation: Escalation of care including admission/observation considered Patient is not on a vent and does not any pain medications or fluids and he feels comfortable going home. Lab Data MDM Lab Attestation statement: I reviewed the patient's lab results. 04/14/23 14:23 04/14/23 14:23 Labs: Lab Results 04/14/23 Range/Units 14:23 WBC 7.6 (4.8-10.8) X10*3/uL RBC 4.34 L (4.60-5.80) X10*6/uL Hgb 13.9 L (14.0-18.0) g/dl Hct 41.0 L (42.0-52.0) % MCV 94.5 (80.0-98.0) fL MCH 32.0 (27.0-33.0) pg MCHC 33.9 (31.0-36.0) g/dl RDW 13.2 (11.0-16.0) % Plt Count 176 (160-400) X10*3/uL MPV 9.9 (9.4-12.4) fL Immature Gran % (Auto) 0.3 (0.0-0.4) % Neut % (Auto) 62.1 (45-73) % Lymph % (Auto) 24.1 (20-40) % [place] % (Auto) 11.1 H (2-11) % Eos % (Auto) 1.6 (0-4) % Baso % (Auto) 0.8 (0-2) % Lymph # (Auto) 1.8 (1.2-4.9) X10*3/uL [place] # (Auto) 0.8 (0.1-1.2) X10*3/uL Eos # (Auto) 0.1 (0.0-0.4) X10*3/uL Baso # (Auto) 0.1 (0.0-0.2) X10*3/uL Abs Immat Gran (auto) 0.02 (0.00-0.03) X10*3/uL Absolute Neuts (auto) 4.7 (2.0-8.3) x10*3/uL Absolute Nucleated RBC 0.000 (0.0-0.012) X10*3/uL Nucleated RBC % (auto) 0.0 (0.0-0.2) /100WBC Sodium 141 (135-145) mmol/L Potassium 4.2 (3.3-5.1) mmol/L Chloride 114 H (96-108) mmol/L Carbon Dioxide 21 L (22-29) mmol/L Anion Gap 10 L (12-20) BUN 21 H (9-16) mg/dL Creatinine 0.94 (0.5-1.4) mg/dL Estim Creat Clear Calc 70.9 Estimated GFR > 60 Random Glucose 91 (60-115) mg/dL Calcium 9.3 D (8.4-10.2) mg/dL Magnesium 2.5 (1.6-2.6) mg/dL Total Bilirubin 0.5 (0.0-1.0) mg/dL Direct Bilirubin 0.2 (0.0-0.5) mg/dL AST 15 (5-37) U/L ALT 10 (0-40) U/L Alkaline Phosphatase 48 (39-117) U/L Total Protein 6.3 L (6.5-8.0) g/dL Albumin 3.7 (3.5-5.0) g/dL Lipase 18 (8-78) U/L Urine Color Dark Yellow Urine Appearance Clear Urine pH 6.0 (5.0-9.0) Ur Specific [place] 1.020 (1.005-1.025) Urine Protein Negative (Neg-Trace) mg/dL Urine Glucose (UA) Negative (Negative) mg/dL Urine Ketones Negative (Negative) mg/dL Urine Blood Negative (Negative) Urine Nitrite Negative (Negative) Ur Leukocyte Esterase Negative (Negative) Medications Administered Discontinued Medications Generic Name Dose Route Start Last Admin Trade Name Freq PRN Reason Stop Dose Admin Diatrizoate Meglum/Diatrizoate Sod 30 ml 04/14/23 16:11 04/14/23 16:12 Diatrizoate Meglumine, Sodium 30 Ml Solution PO 04/14/23 16:12 30 ml ONCE ONE Administration Discharge Plan Discharge Clinical Impression: Partial small bowel obstruction Patient Disposition: Home, Self-Care Instructions: Bowel Obstruction (ED) Additional Instructions: You were seen in the emergency department for abdominal pain and found to have partial small-bowel obstruction appeared to resolve other your weeding in the emergency department. Your CT and labs are all concerning for a bowel obstruction. We did offer admission if you change manual come back to emergency room please return. Prescriptions: No Action levofloxacin 750 mg tablet 750 mg PO DAILY Qty: 14 0RF lisinopril 20 mg tablet 20 mg PO DAILY latanoprost 0.005 % drops 1 drp ophthalmic (eye) BEDTIME PreserVision AREDS-2 [id number] pt-uthb-tx-mg capsule 1 tab PO BID Rx Instructions: give with food (meal/snack) cod liver oil Capsule 1 cap PO DAILY bupropion HCl 100 mg tablet 200 mg PO BID tadalafil 10 mg tablet 10 mg PO DAILY PRN venlafaxine 50 mg tablet 50 mg PO DAILY
[2023-04-14 13:57] VITALS: BP 118/45; PULSE 49; RESP 18; TEMP 36.8; O2SAT 96; BMI 30.8
[2023-04-14 14:28] LABS: MANUAL DIFF FLAG NO
[2023-04-14 14:30] LABS: Appearance Urine Clear; Color Urine Dark Yellow; Glucose Urine UA Negative (Negative); Leukocyte Esterase Urine Negative (Negative); Nitrite Urine Negative (Negative); Urine Blood Negative (Negative); Urine Ketones Negative (Negative); Urine Protein Negative (Neg-Trace)
[2023-04-14 14:32] LABS: Basophils Absolute Auto 0.1 X10*3/uL (0.0-0.2); Basophils Percent Auto 0.8 % (0-2); Eosinophils Absolute Auto 0.1 X10*3/uL (0.0-0.4); Eosinophils Percent Auto 1.6 % (0-4); Hemoglobin 13.9 g/dl (14.0-18.0); Imm Gran Abs Auto 0.02 X10*3/uL (0.00-0.03); Imm Gran Pct Auto 0.3 % (0.0-0.4); Lymphocytes Absolute Auto 1.8 X10*3/uL (1.2-4.9); Lymphocytes Percent Auto 24.1 % (20-40); Mean Corpuscular HGB Conc 33.9 g/dl (31.0-36.0); Mean Corpuscular Volume 94.5 fL (80.0-98.0); Mean Platelet Volume 9.9 fL (9.4-12.4); Monocytes Absolute Auto 0.8 X10*3/uL (0.1-1.2); Monocytes Percent Auto 11.1 % (2-11); Neutrophils Absolute Auto 4.7 x10*3/uL (2.0-8.3); Neutrophils Percent Auto 62.1 % (45-73); Platelet Count 176 X10*3/uL (160-400); Red Blood Count 4.34 X10*6/uL (4.60-5.80); Red Cell Distribution Width 13.2 % (11.0-16.0); White Blood Count 7.6 X10*3/uL (4.8-10.8)
[2023-04-14 14:46] LABS: Alanine Aminotransferase 10 U/L (0-40); Albumin Level 3.7 g/dL (3.5-5.0); Alkaline Phosphatase 48 U/L (39-117); Anion Gap 10 (12-20); Aspartate Amino Transferase 15 U/L (5-37); Bilirubin Direct 0.2 mg/dL (0.0-0.5); Bilirubin Total 0.5 mg/dL (0.0-1.0); Blood Urea Nitrogen 21 mg/dL (9-16); Calcium 9.3 mg/dL (8.4-10.2); Carbon Dioxide 21 mmol/L (22-29); Chloride 114 mmol/L (96-108); Creatinine Clr Calc Pharmacy 70.9; Estimated Glomerular Filt Rate > 60; Glucose Random 91 mg/dL (60-115); Lipase 18 U/L (8-78); Magnesium 2.5 mg/dL (1.6-2.6); Potassium 4.2 mmol/L (3.3-5.1); Sodium 141 mmol/L (135-145); Total Protein 6.3 g/dL (6.5-8.0)
[2023-04-14] MEDS: Diatrizoate Meglumine, Sodium 30 ML SOLUTION PO (16:12)
[2023-04-14 18:39] VITALS: BP 126/51; PULSE 54; RESP 16; TEMP 36.5; O2SAT 54
--- NOTE | 2023-04-14 18:45 | PC.NURSE ---
pt a&ox3, vss, pt comes in today d/t bowel obstruction. pt believes that bowel obstruction has passed and that the pain has subsided. provider bedside as well. pt verbalizing that he wants to go home and that he believes that there is not anything that anyone can do for him at this point because he is feeling better.
== END 2023-04-14 18:58 | disposition home or self-care (01) ==
PROVIDERS: Physician Assistant; Emergency Provider Student in an Organized Health Care Education/Training Program; PCP Internal Medicine Medical Oncology
DX: K56.600 Partial intestinal obstruction, unspecified as to cause (principal); I10 Essential (primary) hypertension; Z79.899 Other long term (current) drug therapy
CPT/HCPCS: 36415; 74176; 80048; 80076; 81003; 83690; 83735; 85025; 99284

== ENCOUNTER 2023-07-31 10:27 | Emergency (ER) | payer MEDICARE, SELFPAY ==
--- NOTE | ~2023-07-31 | CT_ITS ---
EXAMINATION: CT ABDOMEN AND PELVIS WITH CONTRAST CLINICAL INFORMATION: Epigastric pain radiating to back COMPARISON: April 14, 2023 TECHNIQUE: Multidetector volumetric images were obtained from the superior aspect of the liver through the pubic symphysis following administration 85 mL of Omnipaque 350 intravenous contrast. Sagittal and coronal reformatted images were obtained on the technologist's workstation. Oral contrast: No This CT examination was performed using dose optimization techniques as appropriate, variously including the following: *Automated exposure control *Adjustment of mA and/or kV according to patient size (this includes techniques or standardized protocols for targeted exams where dose is matched to indication/reason for exam; i.e. extremities or head) *Use of iterative reconstruction technique DLP: 733 mGy-cm FINDINGS: LUNG BASES: The visualized lung bases are unremarkable. Breathing artifact. No pleural or pericardial effusion. LIVER, GALLBLADDER, AND BILIARY TREE: The liver is normal in size, shape, and attenuation. No focal hepatic lesion or biliary ductal dilatation is present. Status post cholecystectomy. PANCREAS: Unremarkable. No abnormal mass or peripancreatic inflammatory change. SPLEEN: Unremarkable. ADRENAL GLANDS: Unremarkable. KIDNEYS AND URETERS: The kidneys are normal in size, shape, and attenuation. No hydronephrosis, hydroureter, or calculi seen. No perinephric stranding. Bilateral cysts are present largest upper pole right 2.7 cm in diameter. These do not require follow-up. BLADDER: Decompressed GASTROINTESTINAL TRACT: No dilated loops of large or small bowel are evident. No free air or free fluid. There is prominent diverticular disease throughout the sigmoid colon without definite pericolonic inflammatory change or abnormal fluid collection. Appendix not identified. ABDOMINAL WALL: Small fat-containing umbilical hernia. LYMPH NODES: No lymphadenopathy appreciated. VASCULAR: No significant abnormality. PELVIC VISCERA: Unremarkable. OSSEOUS STRUCTURES: No suspicious bony abnormality appreciated. There is ankylosis of the sacroiliac joints bilaterally and multilevel significant degenerative disc disease and facet arthropathy within the lumbar spine. CT/CT abdomen pelvis w IV con IMPRESSION: No evidence of bowel ileus or obstruction. No evidence of obstructive uropathy. Significant sigmoid diverticular disease without evidence of acute diverticulitis. Fleischner guidelines were followed.
[2023-07-31 10:46] VITALS: BP 118/45; PULSE 60; RESP 18; TEMP 36.9; O2SAT 98; BMI 32.3
--- NOTE | 2023-07-31 10:49 | ED.GENADULT ---
HPI - General Adult General Chief complaint: Abdominal Pain Stated complaint: Referred by PCP for cat scan Time Seen by Provider: 07/31/23 10:57 Source: patient, family and old records reviewed Mode of arrival: ambulatory Limitations: no limitations Related Data Home Medications Medication Instructions Recorded Confirmed cod liver oil 1 cap PO DAILY 07/02/20 01/28/21 latanoprost 0.005 % eye drops 1 drp ophthalmic (eye) BEDTIME 07/02/20 01/28/21 lisinopril 20 mg tablet 20 mg PO DAILY 07/02/20 01/28/21 vit C 250 mg-vit E 90 mg-zinc 40 1 tab PO BID 07/02/20 01/28/21 mg-copper 1 ph-ceexir-olorlq capsule (PreserVision AREDS-2) bupropion HCl 100 mg tablet 200 mg PO BID 01/28/21 01/28/21 tadalafil 10 mg tablet 10 mg PO DAILY PRN 11/10/22 venlafaxine 50 mg tablet 50 mg PO DAILY 11/10/22 Previous Rx's Medication Instructions Recorded levofloxacin 750 mg tablet 750 mg PO DAILY #14 tabs 06/23/22 Allergies Allergy/AdvReac Type Severity Reaction Status Date / Time No Known Allergies Allergy Verified 07/31/23 10:46 [facility] Past Medical History Medical History Dyspnea on exertion Surgical History History of lumbosacral spine surgery History of breast lump/mass excision History of laparoscopic cholecystectomy History of inguinal hernia repair, bilateral Family History Family History Father No problems noted. Mother No problems noted. Social History Social History Alcohol intake: current Alcohol intake frequency: holidays/special occasions only Patient Tobacco Use Status: Never used Tobacco Advance Directives: No Advance Directives Information Provided: Yes Current occupational status: retired Current occupation: rt hand Physical Exam ED Vital Signs: Vital Signs - 24 hr 07/31/23 10:46 07/31/23 12:24 Temperature 98.4 F Pulse Rate 60 54 Respiratory Rate 18 13 Blood Pressure 118/45 L 109/51 L Pulse Oximetry 98 97 Oxygen Delivery Method Nasal Cannula Room Air BMI result Body Mass Index 32.3 Course Course Course Narrative: This is a rapid medical exam: Additional HPI, ROS, PE not included below will be deferred to primary provider. Patient is an 82-year-old male with history of HTN, urinary and bowel incontinence, prior bowel obstruction, cholecystectomy presenting to the ED with complaint of epigastric abdominal pain radiating through to back since Thursday afternoon. Reports pain has been constant, ranges from 4/10-6/10. Denies nausea, vomiting, diarrhea. Last BM yesterday. Denies chest pain, palpitations, or dyspnea. Called PCP who referred pt to the ED. Plan: EKG, labs, UA Medications Administered Discontinued Medications Generic Name Dose Route Start Last Admin Trade Name Freq PRN Reason Stop Dose Admin Iohexol 85 ml 07/31/23 11:56 07/31/23 11:56 Iohexol 350 Mg/Ml 100 Ml Infus..Btl IV 07/31/23 11:57 85 ml ONCE ONE Administration Medical Decision Making Medical Decision Making [facility] Narrative: 82 yo male with PMH of HTN here with c/o epigastric pain but no n/v/d no GIB symptoms no CP/SOB does take motrin sometimes he is not toxic at this time Lab Data [facility] Lab Attestation statement: I reviewed the patient's lab results. 07/31/23 11:07 07/31/23 11:07 Labs: Lab Results 07/31/23 07/31/23 Range/Units 11:07 11:42 WBC 5.7 (4.8-10.8) X10*3/uL RBC 4.52 L (4.60-5.80) X10*6/uL Hgb 14.2 (14.0-18.0) g/dl Hct 41.9 L (42.0-52.0) % MCV 92.7 (80.0-98.0) fL MCH 31.4 (27.0-33.0) pg MCHC 33.9 (31.0-36.0) g/dl RDW 12.9 (11.0-16.0) % Plt Count 174 (160-400) X10*3/uL MPV 9.6 (9.4-12.4) fL Immature Gran % (Auto) 0.2 (0.0-0.4) % Neut % (Auto) 52.3 (45-73) % Lymph % (Auto) 30.5 (20-40) % [place] % (Auto) 13.8 H (2-11) % Eos % (Auto) 2.3 (0-4) % Baso % (Auto) 0.9 (0-2) % Lymph # (Auto) 1.8 (1.2-4.9) X10*3/uL [place] # (Auto) 0.8 (0.1-1.2) X10*3/uL Eos # (Auto) 0.1 (0.0-0.4) X10*3/uL Baso # (Auto) 0.1 (0.0-0.2) X10*3/uL Abs Immat Gran (auto) 0.01 (0.00-0.03) X10*3/uL Absolute Neuts (auto) 3.0 (2.0-8.3) x10*3/uL Absolute Nucleated RBC 0.000 (0.0-0.012) X10*3/uL Nucleated RBC % (auto) 0.0 (0.0-0.2) /100WBC PT 13.2 (11.1-13.3) SEC INR 1.1 (0.9-1.1) Sodium 142 (135-145) mmol/L Potassium 4.2 (3.3-5.1) mmol/L Chloride 107 (96-108) mmol/L Carbon Dioxide 29 (22-29) mmol/L Anion Gap 10 L (12-20) BUN 27 H (9-16) mg/dL Creatinine 1.15 (0.5-1.4) mg/dL Estim Creat Clear Calc 59.2 Estimated GFR > 60 Random Glucose 84 (60-115) mg/dL Calcium 9.2 (8.4-10.2) mg/dL Total Bilirubin 0.5 (0.0-1.0) mg/dL AST 15 (5-37) U/L ALT 13 (0-40) U/L Alkaline Phosphatase 51 (39-117) U/L Troponin I High Sens 2.9 (<3.5-35.0) ng/L Total Protein 6.6 (6.5-8.0) g/dL Albumin 3.9 (3.5-5.0) g/dL Lipase 18 (8-78) U/L Urine Color Yellow Urine Appearance Clear Urine pH 7.0 (5.0-9.0) Ur Specific [place] 1.015 (1.005-1.025) Urine Protein Negative (Neg-Trace) mg/dL Urine Glucose (UA) Negative (Negative) mg/dL Urine Ketones Negative (Negative) mg/dL Urine Blood Negative (Negative) Urine Nitrite Negative (Negative) Ur Leukocyte Esterase Negative (Negative) Discharge Plan Discharge Prescriptions: No Action levofloxacin 750 mg tablet 750 mg PO DAILY Qty: 14 0RF lisinopril 20 mg tablet 20 mg PO DAILY latanoprost 0.005 % drops 1 drp ophthalmic (eye) BEDTIME PreserVision AREDS-2 [id number] vd-jsox-es-mg capsule 1 tab PO BID Rx Instructions: give with food (meal/snack) cod liver oil Capsule 1 cap PO DAILY bupropion HCl 100 mg tablet 200 mg PO BID tadalafil 10 mg tablet 10 mg PO DAILY PRN venlafaxine 50 mg tablet 50 mg PO DAILY
--- NOTE | 2023-07-31 10:55 | ECG_ITS ---
Test Reason : EPIGASTRIC PAIN Blood Pressure : / mmHG Vent. Rate : 059 BPM Atrial Rate : 059 BPM P-R Int : 168 ms QRS Dur : 098 ms QT Int : 382 ms P-R-T Axes : 043 -22 023 degrees QTc Int : 378 ms Sinus bradycardia with occasional Premature ventricular complexes Incomplete right bundle branch block Septal infarct , age undetermined Abnormal ECG When compared with ECG of 04-JAN-2021 11:05, Premature ventricular complexes are now Present Vent. rate has decreased BY 38 BPM Incomplete right bundle branch block is now Present Septal infarct is now Present Referred By: Richa Cates Electronically Signed By:DAMION CHASE
[2023-07-31 11:11] LABS: MANUAL DIFF FLAG NO
[2023-07-31 11:13] LABS: Basophils Absolute Auto 0.1 X10*3/uL (0.0-0.2); Basophils Percent Auto 0.9 % (0-2); Eosinophils Absolute Auto 0.1 X10*3/uL (0.0-0.4); Eosinophils Percent Auto 2.3 % (0-4); Hematocrit 41.9 % (42.0-52.0); Hemoglobin 14.2 g/dl (14.0-18.0); Imm Gran Abs Auto 0.01 X10*3/uL (0.00-0.03); Imm Gran Pct Auto 0.2 % (0.0-0.4); Lymphocytes Absolute Auto 1.8 X10*3/uL (1.2-4.9); Lymphocytes Percent Auto 30.5 % (20-40); Mean Corpuscular HGB Conc 33.9 g/dl (31.0-36.0); Mean Corpuscular Hemoglobin 31.4 pg (27.0-33.0); Mean Corpuscular Volume 92.7 fL (80.0-98.0); Mean Platelet Volume 9.6 fL (9.4-12.4); Monocytes Absolute Auto 0.8 X10*3/uL (0.1-1.2); Monocytes Percent Auto 13.8 % (2-11); Neutrophils Percent Auto 52.3 % (45-73); Platelet Count 174 X10*3/uL (160-400); Red Blood Count 4.52 X10*6/uL (4.60-5.80); Red Cell Distribution Width 12.9 % (11.0-16.0); White Blood Count 5.7 X10*3/uL (4.8-10.8)
--- NOTE | 2023-07-31 11:13 | ED.ABDPAIN ---
HPI - Abdominal Pain General Chief Complaint: Abdominal Pain Stated Complaint: Referred by PCP for cat scan Time Seen by Provider: 07/31/23 10:57 Source: patient, family and old records reviewed Mode of arrival: ambulatory Limitations: no limitations History of Present Illness HPI narrative: 82 yo male with PMH of HTN, arthritis, prior SBO, cholecystectomy he states 15 years ago here with c/o epigastric pain radiating to back x 2 days but no n/v/d and had CT scan back in April of this year normal aorta. He took motrin prior to arrival with some relief. NO CP/SOB no GIB symptoms. He denies ETOH use. MD elicited complaint: abdominal pain Pertinent past history: other (surgery, SBO) Onset (ago): day(s) (2) Pain Consistency: constant Location: epigastric Severity: moderate Quality: aching Radiation: back Migration to: no migration Exacerbating factors: nothing Relieving factors: nothing Associated symptoms: denies other symptoms Treatments prior to arrival: NSAIDs Related Data Home Medications Medication Instructions Recorded Confirmed cod liver oil 1 cap PO DAILY 07/02/20 01/28/21 latanoprost 0.005 % eye drops 1 drp ophthalmic (eye) BEDTIME 07/02/20 01/28/21 lisinopril 20 mg tablet 20 mg PO DAILY 07/02/20 01/28/21 vit C 250 mg-vit E 90 mg-zinc 40 1 tab PO BID 07/02/20 01/28/21 mg-copper 1 in-uwvscs-plrjam capsule (PreserVision AREDS-2) bupropion HCl 100 mg tablet 200 mg PO BID 01/28/21 01/28/21 tadalafil 10 mg tablet 10 mg PO DAILY PRN 11/10/22 venlafaxine 50 mg tablet 50 mg PO DAILY 11/10/22 Previous Rx's Medication Instructions Recorded levofloxacin 750 mg tablet 750 mg PO DAILY #14 tabs 06/23/22 omeprazole 20 mg capsule,delayed 20 mg PO DAILY #60 caps 07/31/23 release Allergies Allergy/AdvReac Type Severity Reaction Status Date / Time No Known Allergies Allergy Verified 07/31/23 10:46 Review of Systems Review of Systems Constitutional : No Weight loss, No Fever, No Chills, no anorexia ENT/Mouth : No sore throat, No Rhinorrhea Eyes: No Swelling, No Redness Cardiovascular : No Chest Pain, No SOB, NoEdema Respiratory : No Cough, No Sputum, No Wheezing Gastrointestinal : no Nausea, no Vomiting, pno Diarrhea, positive abdominal Pain, No Hematochezia, No Melena Genitourinary : No Dysuria, No Urinary Frequency, No Hematuria, No Urgency Musculoskeletal : No joint pain, No Myalgias, No Joint Swelling Skin : No Skin Lesions, No rash Neuro : No Weakness, No Numbness, No Dizziness, No Headache Psych : No Anxiety/Panic, No Depression All other systems reviewed and are negative. [facility] Past Medical History Attestation statement: The following information was validated with the patient. Source: old records reviewed Medical History Dyspnea on exertion Surgical History History of lumbosacral spine surgery History of breast lump/mass excision History of laparoscopic cholecystectomy History of inguinal hernia repair, bilateral Family History Family History Father No problems noted. Mother No problems noted. Social History Social History Alcohol intake: current Alcohol intake frequency: holidays/special occasions only Patient Tobacco Use Status: Never used Tobacco Advance Directives: No Advance Directives Information Provided: Yes Current occupational status: retired Current occupation: rt hand Physical Exam ED Vital Signs: Vital Signs - 24 hr 07/31/23 10:46 07/31/23 12:24 Temperature 98.4 F Pulse Rate 60 54 Respiratory Rate 18 13 Blood Pressure 118/45 L 109/51 L Pulse Oximetry 98 97 Oxygen Delivery Method Nasal Cannula Room Air BMI result Body Mass Index 32.3 Appearance: Alert. Oriented X3. No acute distress. Eyes: Pupils equal, round and reactive to light. ENT: Pharynx normal. Neck: Normal inspection. Neck supple. CVS: Normal heart rate and rhythm. Pulses normal. Respiratory: No respiratory distress. Breath sounds normal. Abdomen: Soft and mild epigastric ttp no rebound no mass felt Skin: Skin warm and dry. Normal skin color. Normal skin turgor. Extremities: No lower extremity edema. No calf ttp Neuro: Oriented X 3. No motor deficit. No sensory deficit. Medical Decision Making Medical Decision Making MDM Narrative: 82 yo male with PMH of HTN, arthritis, prior SBO, cholecystectomy he states 15 years ago here with c/o 2 days of epigastric pain radiating to back no mass felt on exam no peritoneal signs no jaundice - at this time had CT scan back in April no aneurysm seem will obtain labs, EKG, troponin, declines pain medications, CT scan for mass, pancreatitis. Differential Diagnosis Differential Diagnoses: The differential diagnosis associated with the presentation includes pancreatitis, gastritis, mass, GERD, PUD Admission/Observation Consideration of admission/observation: Escalation of care including admission/observation considered labs and CT Scan reassuring at this time will start on PPI and refer to GI Lab Data [facility] Lab Attestation statement: I reviewed the patient's lab results. 07/31/23 11:07 07/31/23 11:07 Labs: Lab Results 07/31/23 07/31/23 Range/Units 11:07 11:42 WBC 5.7 (4.8-10.8) X10*3/uL RBC 4.52 L (4.60-5.80) X10*6/uL Hgb 14.2 (14.0-18.0) g/dl Hct 41.9 L (42.0-52.0) % MCV 92.7 (80.0-98.0) fL MCH 31.4 (27.0-33.0) pg MCHC 33.9 (31.0-36.0) g/dl RDW 12.9 (11.0-16.0) % Plt Count 174 (160-400) X10*3/uL MPV 9.6 (9.4-12.4) fL Immature Gran % (Auto) 0.2 (0.0-0.4) % Neut % (Auto) 52.3 (45-73) % Lymph % (Auto) 30.5 (20-40) % [place] % (Auto) 13.8 H (2-11) % Eos % (Auto) 2.3 (0-4) % Baso % (Auto) 0.9 (0-2) % Lymph # (Auto) 1.8 (1.2-4.9) X10*3/uL [place] # (Auto) 0.8 (0.1-1.2) X10*3/uL Eos # (Auto) 0.1 (0.0-0.4) X10*3/uL Baso # (Auto) 0.1 (0.0-0.2) X10*3/uL Abs Immat Gran (auto) 0.01 (0.00-0.03) X10*3/uL Absolute Neuts (auto) 3.0 (2.0-8.3) x10*3/uL Absolute Nucleated RBC 0.000 (0.0-0.012) X10*3/uL Nucleated RBC % (auto) 0.0 (0.0-0.2) /100WBC PT 13.2 (11.1-13.3) SEC INR 1.1 (0.9-1.1) Sodium 142 (135-145) mmol/L Potassium 4.2 (3.3-5.1) mmol/L Chloride 107 (96-108) mmol/L Carbon Dioxide 29 (22-29) mmol/L Anion Gap 10 L (12-20) BUN 27 H (9-16) mg/dL Creatinine 1.15 (0.5-1.4) mg/dL Estim Creat Clear Calc 59.2 Estimated GFR > 60 Random Glucose 84 (60-115) mg/dL Calcium 9.2 (8.4-10.2) mg/dL Total Bilirubin 0.5 (0.0-1.0) mg/dL AST 15 (5-37) U/L ALT 13 (0-40) U/L Alkaline Phosphatase 51 (39-117) U/L Troponin I High Sens 2.9 (<3.5-35.0) ng/L Total Protein 6.6 (6.5-8.0) g/dL Albumin 3.9 (3.5-5.0) g/dL Lipase 18 (8-78) U/L Urine Color Yellow Urine Appearance Clear Urine pH 7.0 (5.0-9.0) Ur Specific [place] 1.015 (1.005-1.025) Urine Protein Negative (Neg-Trace) mg/dL Urine Glucose (UA) Negative (Negative) mg/dL Urine Ketones Negative (Negative) mg/dL Urine Blood Negative (Negative) Urine Nitrite Negative (Negative) Ur Leukocyte Esterase Negative (Negative) Independent Interpretation I performed an independent interpretation of an: EKG and CT Scan (no acute findings) Interpretation: Rate: 59 Rhythm: sinus bradycardia [place]: left Normal P waves. Normal JONATAN. Normal QRS complex. ST T wave : no KATE, inverted t wave V1, no KATE qTC: normal prior studies: no acute ischemia The study has been interpreted contemporaneously by me. . Radiology Impression Discussion of test interpretation with radiology: I have reviewed the radiologist's reading. Independent Historian Clinical information obtained from an independent historian. History obtained from or confirmed by: Spouse External Record Review External record reviewed: Inpatient record Chronic Conditions Patient?s care impacted by: Other Medications Administered Discontinued Medications Generic Name Dose Route Start Last Admin Trade Name Freq PRN Reason Stop Dose Admin Iohexol 85 ml 07/31/23 11:56 07/31/23 11:56 Iohexol 350 Mg/Ml 100 Ml Infus..Btl IV 07/31/23 11:57 85 ml ONCE ONE Administration Discharge Plan Discharge Clinical Impression: Abdominal pain Qualifiers: Abdominal location: epigastric Qualified Code(s): R10.13 - Epigastric pain Patient Disposition: Home, Self-Care Instructions: Abdominal Pain (ED) Additional Instructions: your labs and CT scan were normal at this time possible ulcer vs gastritis STOP taking motrin, aleve, aspirin, ibuprofen follow up with your doctor for GI referral and H. pylori testing. start new medication take 20mg twice a day for two weeks then once a day going forward return for worsening symptoms or concerns. Prescriptions: New omeprazole 20 mg capsule,delayed release(DR/EC) 20 mg PO DAILY Qty: 60 0RF Rx Instructions: take twice a day for one week then daily No Action levofloxacin 750 mg tablet 750 mg PO DAILY Qty: 14 0RF lisinopril 20 mg tablet 20 mg PO DAILY latanoprost 0.005 % drops 1 drp ophthalmic (eye) BEDTIME PreserVision AREDS-2 [phone] fx-qmci-bt-mg capsule 1 tab PO BID Rx Instructions: give with food (meal/snack) cod liver oil Capsule 1 cap PO DAILY bupropion HCl 100 mg tablet 200 mg PO BID tadalafil 10 mg tablet 10 mg PO DAILY PRN venlafaxine 50 mg tablet 50 mg PO DAILY
[2023-07-31 11:18] LABS: INTERNATIONAL NORM RATIO 1.1 (0.9-1.1); Prothrombin Time 13.2 SEC (11.1-13.3)
[2023-07-31 11:26] LABS: Alanine Aminotransferase 13 U/L (0-40); Albumin Level 3.9 g/dL (3.5-5.0); Alkaline Phosphatase 51 U/L (39-117); Anion Gap 10 (12-20); Aspartate Amino Transferase 15 U/L (5-37); Bilirubin Total 0.5 mg/dL (0.0-1.0); Blood Urea Nitrogen 27 mg/dL (9-16); Calcium 9.2 mg/dL (8.4-10.2); Carbon Dioxide 29 mmol/L (22-29); Chloride 107 mmol/L (96-108); Creatinine Clr Calc Pharmacy 59.2; Estimated Glomerular Filt Rate > 60; Glucose Random 84 mg/dL (60-115); Lipase 18 U/L (8-78); Potassium 4.2 mmol/L (3.3-5.1); Sodium 142 mmol/L (135-145); Total Protein 6.6 g/dL (6.5-8.0)
[2023-07-31 11:33] LABS: Troponin-I High Sensitivity 2.9 ng/L (<3.5-35.0)
[2023-07-31 11:49] LABS: Appearance Urine Clear; Color Urine Yellow; Glucose Urine UA Negative (Negative); Leukocyte Esterase Urine Negative (Negative); Nitrite Urine Negative (Negative); Specific Gravity - Urine 1.015 (1.005-1.025); Urine Blood Negative (Negative); Urine Ketones Negative (Negative); Urine Protein Negative (Neg-Trace)
[2023-07-31] MEDS: iohexoL 350 MG/ML 100 ML INFUS..BTL 85 ML IV (11:56)
[2023-07-31 12:24] VITALS: BP 109/51; PULSE 54; RESP 13; O2SAT 97
== END 2023-07-31 14:13 | disposition home or self-care (01) ==
PROVIDERS: Registered Nurse Emergency; Emergency Provider Emergency Medicine; PCP Internal Medicine Medical Oncology
DX: R10.13 Epigastric pain (principal); I10 Essential (primary) hypertension; Z79.899 Other long term (current) drug therapy
CPT/HCPCS: 36415; 74177; 80053; 81003; 83690; 84484; 85025; 85610; 93005; 99284; Q9967

== ENCOUNTER → 2023-07-31 10:55 | Outpatient (BNV) | payer MEDICARE, SELFPAY | PROVIDERS: Emergency Provider Emergency Medicine; PCP Internal Medicine Medical Oncology; Visit Provider Internal Medicine | DX: R00.1 Bradycardia, unspecified (principal); R10.13 Epigastric pain | CPT/HCPCS: 93010 ==

== ENCOUNTER 2023-08-28 11:39 | Outpatient (AMB) | payer MEDICARE, SELFPAY ==
--- NOTE | 2023-08-28 11:40 | A.OFFVIS_ITS ---
Intake Vital Signs 3 08/28/23 11:52 Height 5 ft 8.5 in Weight 217 lb BMI 32.5 BP 127/58 L Blood Pressure Location Lt brachial Position Sitting Pulse 66 Intake Visit Reasons: umblilical hernia Intake Note: Patient is seen in office for evaluation and treatment of an umbilical hernia. Pt c/o: feels a lump in the umbilical area for years, unsure increase/decrease, painful, reducible, taking meds for incontinent bowels, had surgery for bilateral inguinal hernia and cholecystectomy in the past with no complications CT:07/31/23 Atm Servicer Required: No Accompanied by: Self / Same As Patient Allergies No Known Allergies Allergy (Verified 08/28/23 11:50) Medication List - Last Reconciled 08/28/23 by Rasheed Pacheco MD bupropion HCl 200 mg PO BID cod liver oil 1 cap PO DAILY doxazosin 2 mg PO DAILY latanoprost 0.005% 1 drp ophthalmic (eye) BEDTIME levofloxacin 750 mg PO DAILY lisinopril 20 mg PO DAILY omeprazole 20 mg PO DAILY tadalafil 10 mg PO DAILY PRN tamsulosin 0.4 mg PO DAILY venlafaxine 50 mg PO DAILY vit C,Q-Wx-padfs-lutein-zeaxan [id number] mg (PreserVision AREDS-2) 1 tab PO BID HPI HPI Comments 2 History of Present Illness0 Details 82-year-old male patient presenting with complaints of abdominal discomfort mainly in the upper abdomen. He reports several episodes of small- bowel obstruction which resolved spontaneously. Workup with CT abdomen and pelvis revealed a fat containing umbilical hernia. He does report occasional episodes of severe pain in the umbilicus but currently denies any pain. He denies current nausea or vomiting but has had episodes in the past. He also reports episodes of diarrhea. He presents today to discuss possible repair of an umbilical hernia. FORMERLY [facility], [facility]–1983 Medical History Dyspnea on exertion Surgical History History of lumbosacral spine surgery History of breast lump/mass excision History of laparoscopic cholecystectomy History of inguinal hernia repair, bilateral Family History Father No problems noted. Mother No problems noted. Social History Alcohol intake: current Alcohol intake frequency: holidays/special occasions only Patient Tobacco Use Status: Never used Tobacco Current occupational status: retired Current occupation: rt hand Review of Systems Const All systems reviewed & are unremarkable except as noted in HPI and below Denies chills, Denies fever(s), Denies headache(s), Denies poor appetite and Denies weakness ENT Denies headache(s) Card Denies chest pain, Denies irregular heart rhythm, Denies palpitations and Denies dyspnea Resp Denies cough, Denies excessive phlegm production and Denies dyspnea GI Reports abdominal pain, Denies bloating, Denies change in bowel habits, Denies constipation, Denies heartburn, Denies diarrhea, Denies nausea and Denies vomiting Denies difficulty urinating and Denies urinary frequency Musc Denies back pain, Denies muscle weakness and Denies numbness Skin/Breast Denies changing lesions and Denies unusual bruising Neuro Denies headache(s), Denies numbness, Denies paresthesias and Denies weakness Psych Denies anxiety and Denies depression Endo Denies palpitations Shyam/Lymph Denies lymphadenopathy Physical Exam Vital Signs: Last Vital Signs Pulse 66 08/28/23 11:52 BP 127/58 L 08/28/23 11:52 BMI result Body Mass Index 32.5 Const General: cooperative and no acute distress Nutritional Appearance: well nourished Orientation/consciousness: patient oriented x3 Limitations: no limitations HEENT Head: Yes normocephalic and Yes atraumatic Ears: hearing grossly normal bilaterally Resp Effort & Inspection: normal respiratory effort, no audible wheezes, no cough and no respiratory distress Cardio Jugular venous distension: no JVD GI Inspection: Yes normal to inspection and Yes incision (Laparoscopic incision located below the umbilicus, transverse) Palpation (GI): Soft to palpation, nontender, no guarding, not rigid and Hernia present umbilical (2 cm defect noted at the umbilicus which increases with Valsalva, non reducible) Abdomen image: 2 1. Palpable hernia at umbilicus 2. Laparoscopic incision Skin Other: Warm, dry, no rash Neuro General: patient oriented x3 Extrem General: Yes no clubbing, cyanosis or edema Results Reviewed Results Reviewed: CT abdomen and pelvis: Assessment & Plan Assessment & Plan (1) Umbilical hernia, incarcerated: Code(s): K42.0 - Umbilical hernia with obstruction, without gangrene Plan 82-year-old male patient presenting with complaints of abdominal discomfort found to have a non reducible umbilical hernia measuring approximately 2 cm in diameter. It is difficult to know if his abdominal symptoms are related to the umbilical hernia but I would recommend repair of this hernia on elective basis. After discussion of the procedure, risks, and alternatives, he consents to repair of the umbilical hernia with mesh. This will be scheduled as a short- stay surgery at his earliest convenience. Coding Level of Care Code New Pt Level 4 (91794) Diagnoses Umbilical hernia, incarcerated K42.0
[2023-08-28 11:52] VITALS: BP 127/58; PULSE 66; BMI 32.5
== END 2023-08-28 12:52 | disposition home or self-care (01) ==
PROVIDERS: PCP Internal Medicine Medical Oncology; Visit Provider Surgery
DX: K42.0 Umbilical hernia with obstruction, without gangrene (principal)
CPT/HCPCS: 99204

== ENCOUNTER → 2023-08-28 11:39 | Outpatient (BNVA) | payer MEDICARE, SELFPAY | PROVIDERS: PCP Internal Medicine Medical Oncology; Visit Provider Surgery | DX: K42.0 Umbilical hernia with obstruction, without gangrene (principal) | CPT/HCPCS: 99202 ==

== ENCOUNTER 2023-09-04 09:51 | Outpatient (REF) | payer MEDICARE, SELFPAY | END 2023-09-04 09:52 | disposition home or self-care (01) | LOC: HO.SH 09:51 | PROVIDERS: Visit Provider Internal Medicine Medical Oncology | DX: Z01.10 Encounter for examination of ears and hearing without abnormal findings (principal); H90.3 Sensorineural hearing loss, bilateral | CPT/HCPCS: 92557 ==

== ENCOUNTER → 2023-09-14 05:41 | Day surgery (SDC) | payer MEDICARE, SELFPAY ==
[2023-09-09 17:19] VITALS: BMI 32.7
--- NOTE | 2023-09-11 09:34 | P.CONAN_ITS ---
Documented by User: Cristina Ni NP 09/11/23 09:59 HPI - Anesthesia Eval Consult details Narrative: 82yo M for Incarcerated Hernia Umbilical with mesh PCP cleared [facility] 07/2023 with abdominal pain. Abnormal EKG. Pt denies CP/SOB by phone assessment. 2020 cardiac w/u for RAMIREZ negative. PMFSH Active Problems Active Problems: All Active Problems (Updated 08/28/23 @ 13:13 by Rasheed Pacheco MD) Umbilical hernia, incarcerated (Acute) Osteoarthritis of right acromioclavicular joint (Acute) Osteoarthritis of glenohumeral joint (Acute) Osteoarthritis of left AC (acromioclavicular) joint (Acute) Essential hypertension (Acute) Cervical radiculopathy (Acute) Dyspnea on exertion (Acute) Past Medical History Medical History Dyspnea on exertion Family History Family History Father No problems noted. Mother No problems noted. Surgical History Surgical History History of lumbosacral spine surgery History of breast lump/mass excision History of laparoscopic cholecystectomy History of inguinal hernia repair, bilateral Social History Social History Are you a primary health care attorney to a significant other at home: No Alcohol intake: current Alcohol intake frequency: holidays/special occasions only Patient Tobacco Use Status: Former Tobacco user Quit Date: 1969 Tobacco use type: Cigarette Years Smoked: 10 Smoked in Last 30 Days: No Use of substances other than those prescribed or required for medical reasons: No Are you DNR?: No Advance Directives: No Advance Directives Information Provided: Yes Advance Directives on File: No Recently lost weight without trying: No Eating poorly because of decreased appetite: No Nutrition Risks: No Nutritional Risk Poor oral hygiene: No Current occupational status: retired Current occupation: rt hand Meds Allergies Allergy/AdvReac Type Severity Reaction Status Date / Time No Known Allergies Allergy Verified 08/28/23 11:50 Home Medications Medication Instructions Recorded Confirmed Last Taken Type cod liver oil 1 cap PO DAILY 07/02/20 08/28/23 Unknown History latanoprost 0.005 % eye drops 1 drp ophthalmic (eye) BEDTIME 07/02/20 08/28/23 Unknown History lisinopril 20 mg tablet 20 mg PO DAILY 07/02/20 08/28/23 Unknown History vit C 250 mg-vit E 90 mg-zinc 40 1 tab PO BID 07/02/20 08/28/23 Unknown History mg-copper 1 [id number]-hphrdb capsule (PreserVision AREDS-2) bupropion HCl 100 mg tablet 200 mg PO BID 01/28/21 08/28/23 Unknown History tadalafil 10 mg tablet 10 mg PO DAILY PRN 11/10/22 08/28/23 Unknown History venlafaxine 50 mg tablet 50 mg PO DAILY 11/10/22 08/28/23 Unknown History doxazosin 2 mg tablet 2 mg PO DAILY 08/28/23 08/28/23 Unknown History tamsulosin 0.4 mg capsule 0.4 mg PO DAILY 08/28/23 08/28/23 Unknown History Exam Height,Weight and Vital Signs: Height 5 ft 8 in Weight 97.522 kg Pertinent Lab Results Pertinent Lab Results: Laboratory Tests 07/31/23 11:07 WBC 5.7 Hgb 14.2 Hct 41.9 L Plt Count 174 Sodium 142 Potassium 4.2 Chloride 107 Carbon Dioxide 29 BUN 27 H Creatinine 1.15 Laboratory Tests 07/31/23 11:07 PT 13.2 INR 1.1 Calcium 9.2 Total Bilirubin 0.5 AST 15 ALT 13 Alkaline Phosphatase 51 Troponin I High Sens 2.9 Total Protein 6.6 Albumin 3.9 Narrative Narrative: EKG 07/2024 Vent. Rate : 059 BPM Atrial Rate : 059 BPM P-R Int : 168 ms QRS Dur : 098 ms QT Int : 382 ms P-R-T Axes : 043 -22 023 degrees QTc Int : 378 ms Sinus bradycardia with occasional Premature ventricular complexes Incomplete right bundle branch block Septal infarct , age undetermined Abnormal ECG When compared with ECG of 04-JAN-2021 11:05, Premature ventricular complexes are now Present Vent. rate has decreased BY 38 BPM Incomplete right bundle branch block is now Present Septal infarct is now Present NM cardiolite stress test 2020 IMPRESSION: 1. Myocardial perfusion imaging study shows likely normal myocardial perfusion. Fixed inferior defect suspected to be from diaphragmatic attenuation artifact. 2. Gated LVEF is 69% during stress and 55% during rest.. 3. Transient ischemic dilatation not present. EKG component of the test reported separately. Assessment and Plan Assessment Anesthesia Assessment: Chart Reviewed Documented by User: Ash Weaver MD 09/14/23 07:11 [facility] Past Medical History Medical History Dyspnea on exertion Family History Family History Father No problems noted. Mother No problems noted. Surgical History Surgical History History of lumbosacral spine surgery History of breast lump/mass excision History of laparoscopic cholecystectomy History of inguinal hernia repair, bilateral Social History Social History Are you a primary health care attorney to a significant other at home: No Alcohol intake: current Alcohol intake frequency: holidays/special occasions only Patient Tobacco Use Status: Former Tobacco user Quit Date: 1969 Tobacco use type: Cigarette Years Smoked: 10 Smoked in Last 30 Days: No Use of substances other than those prescribed or required for medical reasons: No Are you DNR?: No Advance Directives: No Advance Directives Information Provided: Yes Advance Directives on File: No Recently lost weight without trying: No Eating poorly because of decreased appetite: No Nutrition Risks: No Nutritional Risk Poor oral hygiene: No Current occupational status: retired Current occupation: rt hand Meds Allergies Allergy/AdvReac Type Severity Reaction Status Date / Time No Known Allergies Allergy Verified 08/28/23 11:50 Home Medications Medication Instructions Recorded Confirmed Last Taken Type cod liver oil 1 cap PO DAILY 07/02/20 08/28/23 Unknown History latanoprost 0.005 % eye drops 1 drp ophthalmic (eye) BEDTIME 07/02/20 08/28/23 Unknown History lisinopril 20 mg tablet 20 mg PO DAILY 07/02/20 08/28/23 Unknown History vit C 250 mg-vit E 90 mg-zinc 40 1 tab PO BID 07/02/20 08/28/23 Unknown History mg-copper 1 [id number]-[id number] capsule (PreserVision AREDS-2) bupropion HCl 100 mg tablet 200 mg PO BID 01/28/21 08/28/23 Unknown History tadalafil 10 mg tablet 10 mg PO DAILY PRN 11/10/22 08/28/23 Unknown History venlafaxine 50 mg tablet 50 mg PO DAILY 11/10/22 08/28/23 Unknown History doxazosin 2 mg tablet 2 mg PO DAILY 08/28/23 08/28/23 Unknown History tamsulosin 0.4 mg capsule 0.4 mg PO DAILY 08/28/23 08/28/23 Unknown History Assessment and Plan Assessment Anesthesia Assessment: Anesthesia Plan Discussed Documented by User: Bren Rowley MD 09/14/23 08:25 HPI - Anesthesia Eval Consult details Narrative: 82yo M for Incarcerated Hernia Umbilical with mesh PCP cleared [facility] 07/2023 with abdominal pain. Abnormal EKG. Pt denies CP/SOB by phone assessment. 2020 cardiac w/u for RAMIREZ negative. Interval note (09/14/23): Patient with cough which started 2 days ago. Some fever yesterday. No malaise. No sore throat. Nasal stuffiness for months. Of note, patient was exposed to patient with Covid last week. Covid test 09/21/23 negative. VS today: Temp today 100.9 BP 154/96 MS 94 RR20 O2 sats 96 Explained to patient that surgery would most likely have to be rescheduled because of cough and fever. Will check Covid test- came back positive. Surgery rescheduled. Patient asked to follow up with PCP and report to ER if symptoms worsen. PMFSH Active Problems Active Problems: All Active Problems (Updated 09/14/23 @ 07:00 by Bren Mahmood MD) Umbilical hernia, incarcerated (Acute) Osteoarthritis of right acromioclavicular joint (Acute) Osteoarthritis of glenohumeral joint (Acute) Osteoarthritis of left AC (acromioclavicular) joint (Acute) Essential hypertension (Acute) Cervical radiculopathy (Acute) Dyspnea on exertion (Acute) Past Medical History Medical History Dyspnea on exertion Family History Family History Father No problems noted. Mother No problems noted. Family history of problems with anesthesia: No Surgical History Surgical History History of lumbosacral spine surgery History of breast lump/mass excision History of laparoscopic cholecystectomy History of inguinal hernia repair, bilateral History of Problems with Anesthesia: No Social History Social History Are you a primary health care attorney to a significant other at home: No Alcohol intake: current Alcohol intake frequency: holidays/special occasions only Patient Tobacco Use Status: Former Tobacco user Quit Date: 1969 Tobacco use type: Cigarette Years Smoked: 10 Smoked in Last 30 Days: No Use of substances other than those prescribed or required for medical reasons: No Are you DNR?: No Advance Directives: No Advance Directives Information Provided: Yes Advance Directives on File: No Recently lost weight without trying: No Eating poorly because of decreased appetite: No Nutrition Risks: No Nutritional Risk Poor oral hygiene: No Current occupational status: retired Current occupation: rt hand Meds Allergies Allergy/AdvReac Type Severity Reaction Status Date / Time No Known Allergies Allergy Verified 08/28/23 11:50 Home Medications Medication Instructions Recorded Confirmed Last Taken Type cod liver oil 1 cap PO DAILY 07/02/20 08/28/23 Unknown History latanoprost 0.005 % eye drops 1 drp ophthalmic (eye) BEDTIME 07/02/20 08/28/23 Unknown History lisinopril 20 mg tablet 20 mg PO DAILY 07/02/20 08/28/23 Unknown History vit C 250 mg-vit E 90 mg-zinc 40 1 tab PO BID 07/02/20 08/28/23 Unknown History mg-copper 1 hi-chuphp-mihgoq capsule (PreserVision AREDS-2) bupropion HCl 100 mg tablet 200 mg PO BID 01/28/21 08/28/23 Unknown History tadalafil 10 mg tablet 10 mg PO DAILY PRN 11/10/22 08/28/23 Unknown History venlafaxine 50 mg tablet 50 mg PO DAILY 11/10/22 08/28/23 Unknown History doxazosin 2 mg tablet 2 mg PO DAILY 08/28/23 08/28/23 Unknown History tamsulosin 0.4 mg capsule 0.4 mg PO DAILY 08/28/23 08/28/23 Unknown History Exam Height,Weight and Vital Signs: Height 5 ft 8 in Weight 97.522 kg Vital Signs Temp Pulse Resp BP Pulse Ox O2 Del Method 09/14/23 05:57 100.9 F H 94 20 154/96 H 96 Room Air Pertinent Lab Results Pertinent Lab Results: Laboratory Tests 07/31/23 11:07 WBC 5.7 Hgb 14.2 Hct 41.9 L Plt Count 174 Sodium 142 Potassium 4.2 Chloride 107 Carbon Dioxide 29 BUN 27 H Creatinine 1.15 Laboratory Tests 07/31/23 11:07 PT 13.2 INR 1.1 Calcium 9.2 Total Bilirubin 0.5 AST 15 ALT 13 Alkaline Phosphatase 51 Troponin I High Sens 2.9 Total Protein 6.6 Albumin 3.9 Lab Results 09/14/23 Range/Units 06:48 COVID-19 ([facility]) Positive A (Negative) COVID-19 Clin Com See Note Airway Mallampati Class: II (Bearded) TM Dist: >3cm Neck ROM: Full Loose/Missing/Broken Teeth: Yes (Missing some teeth. Denies broken or loose teeth) Heart: RRR Lungs: CTAB Assessment and Plan Assessment Anesthesia Assessment: Anesthesia Plan Discussed and Chart Reviewed Final Anesthetic Review Family History of Problems with Anesthesia: No History of Problems with Anesthesia: No NPO: Yes ASA Class: III Final Preanesthetic Review: No Changes in Pt Med Stat, Meds/Allgs Chart Reviewed, Consent Obtained/Reviewed and Anes Risks/Benef Reviewed Patient Risk: Intermediate Procedure Risk: Low Assessment/Block/Sedation in SS: Assess/Block/Sedation-SS
[2023-09-14 05:57] VITALS: BP 154/96; PULSE 94; RESP 20; TEMP 38.3; O2SAT 96; BMI 32.8
--- NOTE | 2023-09-14 07:03 | PC.NURSE ---
pt sts took covid test thursday was negative sts feeling okay covid test pending
[2023-09-14 07:19] LABS: COVID-19 Test Positive (Negative); IDNOW Serial# 9DB6401D
--- NOTE | 2023-09-14 07:24 | PC.NURSE ---
PT CANCELLED pOSITIVE COVID DR RAGLAND AT BEDS SPEAKIGN TO PT AWARE CAREPLAN
--- NOTE | 2023-09-14 07:30 | MHC.SHP ---
Pre-Procedural Eval Section A - 24 Hr Update-Section A only Date of Service: 09/14/23 The patient is an INPATIENT: No Changes since office visit: Yes Cold of Flu in the past 2 weeks; No New Medical Problems, No Changes in Medication and No Patient answered all questions Section B - Complete if H&P > 30 days Chief Complaint: Umbilical hernia with obstruction, without gangren Details of Present Illness: patient now with fever and cough since Thursday. COVID swab this morning positive. Allergies: Allergies Allergy/AdvReac Type Severity Reaction Status Date / Time No Known Allergies Allergy Verified 08/28/23 11:50 Plan Diagnosis/Plan: Change I have reviewed the history and physical and performed a pertinent physical examination on my patient. Patient now has new respiratory symptoms including fever and cough. Nasal swab performed in short stay this morning is positive for COVID. We will cancel the surgery today and reschedule in several weeks. Patient expressed understanding and agrees with the plan. Time Spent With Patient Time: Total time managing care of this patient today ___10_ minutes.
== END ==
PROVIDERS: Anesthesiology; PCP Internal Medicine Medical Oncology; Visit Provider Surgery
DX: K46.0 Unspecified abdominal hernia with obstruction, without gangrene (principal); Z53.09 Procedure and treatment not carried out because of other contraindication; U07.1 COVID-19; Z11.52 Encounter for screening for COVID-19
CPT/HCPCS: 87635; J0665; J0690; J2250; J2704; J3010

== ENCOUNTER 2023-12-09 05:55 | Day surgery (SDC) | payer MEDICARE, SELFPAY ==
[2023-12-07 10:21] VITALS: BMI 32.5
--- NOTE | 2023-12-07 14:57 | P.CONAN_ITS ---
Documented by User: Cristnia Ni NP 12/08/23 14:57 HPI - Anesthesia Eval Consult details Narrative: 83yo M for Incarcerated Hernia Umbilical Reducible with mesh [facility] ED 07/2023 with abdominal pain. EKG changes, reviewed by ED MD and ok. Also seen by PCP 10/2023 without any concerns r/t cardiovascular. PMFSH Active Problems Active Problems: All Active Problems Umbilical hernia, incarcerated (Acute) Osteoarthritis of right acromioclavicular joint (Acute) Osteoarthritis of glenohumeral joint (Acute) Osteoarthritis of left AC (acromioclavicular) joint (Acute) Essential hypertension (Acute) Cervical radiculopathy (Acute) Dyspnea on exertion (Acute) Past Medical History Medical History Lumbosacral radiculopathy Gout Elevated cholesterol Gastritis Glaucoma BPH (benign prostatic hyperplasia) Depression Osteoarthritis HTN (hypertension) Family History Family History Father No problems noted. Mother No problems noted. Family history of problems with anesthesia: No Surgical History Surgical History History of dental surgery History of lumbosacral spine surgery History of breast lump/mass excision History of laparoscopic cholecystectomy History of inguinal hernia repair, bilateral History of Problems with Anesthesia: No Social History Social History Are you a primary care professional to a significant other at home: No Alcohol intake: current Alcohol intake frequency: holidays/special occasions only Patient Tobacco Use Status: Former Tobacco user Quit Date: 1969 Tobacco use type: Cigarette Years Smoked: 10 Advance Directives: No (unknown) Advance Directives Information Provided: Yes Advance Directives on File: No Current occupational status: retired Current occupation: rt hand Meds Allergies Allergy/AdvReac Type Severity Reaction Status Date / Time No Known Allergies Allergy Verified 12/09/23 06:36 Home Medications ?Medication ?Instructions ?Recorded ?Confirmed ?Last Taken ?Type latanoprost 0.005 % eye drops 1 drp ophthalmic (eye) BEDTIME 07/02/20 12/09/23 Unknown History lisinopril 20 mg tablet 20 mg PO DAILY 07/02/20 12/09/23 Unknown History vit C 250 mg-vit E 90 mg-zinc 40 1 tab PO BID 07/02/20 12/09/23 Unknown History mg-copper 1 dr-tkcuaa-lvnach capsule (PreserVision AREDS-2) tadalafil 10 mg tablet 10 mg PO DAILY PRN Erectile 11/10/22 12/09/23 Unknown History Dysfunction venlafaxine 50 mg tablet 50 mg PO DAILY 11/10/22 12/09/23 Unknown History doxazosin 2 mg tablet 2 mg PO DAILY 08/28/23 12/09/23 Unknown History tamsulosin 0.4 mg capsule 0.4 mg PO DAILY 08/28/23 12/09/23 Unknown History Exam Height,Weight and Vital Signs: Height 5 ft 8.5 in Weight 98.43 kg Pertinent Lab Results Pertinent Lab Results: Laboratory Tests 07/31/23 11:07 WBC 5.7 Hgb 14.2 Hct 41.9 L Plt Count 174 Sodium 142 Potassium 4.2 Chloride 107 Carbon Dioxide 29 BUN 27 H Creatinine 1.15 Narrative Narrative: EKG 07/2023 Vent. Rate : 059 BPM Atrial Rate : 059 BPM P-R Int : 168 ms QRS Dur : 098 ms QT Int : 382 ms P-R-T Axes : 043 -22 023 degrees QTc Int : 378 ms Sinus bradycardia with occasional Premature ventricular complexes Incomplete right bundle branch block Septal infarct , age undetermined Abnormal ECG When compared with ECG of 04-JAN-2021 11:05, Premature ventricular complexes are now Present Vent. rate has decreased BY 38 BPM Incomplete right bundle branch block is now Present Septal infarct is now Present Assessment and Plan Assessment Anesthesia Assessment: Chart Reviewed Final Anesthetic Review Family History of Problems with Anesthesia: No History of Problems with Anesthesia: No Documented by User: Ash Weaver MD 12/09/23 07:10 PMFSH Past Medical History Medical History Lumbosacral radiculopathy Gout Elevated cholesterol Gastritis Glaucoma BPH (benign prostatic hyperplasia) Depression Osteoarthritis HTN (hypertension) Family History Family History Father No problems noted. Mother No problems noted. Surgical History Surgical History History of dental surgery History of lumbosacral spine surgery History of breast lump/mass excision History of laparoscopic cholecystectomy History of inguinal hernia repair, bilateral Social History Social History Are you a primary care professional to a significant other at home: No Alcohol intake: current Alcohol intake frequency: holidays/special occasions only Patient Tobacco Use Status: Former Tobacco user Quit Date: 1969 Tobacco use type: Cigarette Years Smoked: 10 Advance Directives: No (unknown) Advance Directives Information Provided: Yes Advance Directives on File: No Current occupational status: retired Current occupation: rt hand Meds Allergies Allergy/AdvReac Type Severity Reaction Status Date / Time No Known Allergies Allergy Verified 12/09/23 06:36 Home Medications ?Medication ?Instructions ?Recorded ?Confirmed ?Last Taken ?Type latanoprost 0.005 % eye drops 1 drp ophthalmic (eye) BEDTIME 07/02/20 12/09/23 Unknown History lisinopril 20 mg tablet 20 mg PO DAILY 07/02/20 12/09/23 Unknown History vit C 250 mg-vit E 90 mg-zinc 40 1 tab PO BID 07/02/20 12/09/23 Unknown History mg-copper 1 ej-axjgxx-hfxyen capsule (PreserVision AREDS-2) tadalafil 10 mg tablet 10 mg PO DAILY PRN Erectile 11/10/22 12/09/23 Unknown History Dysfunction venlafaxine 50 mg tablet 50 mg PO DAILY 11/10/22 12/09/23 Unknown History doxazosin 2 mg tablet 2 mg PO DAILY 08/28/23 12/09/23 Unknown History tamsulosin 0.4 mg capsule 0.4 mg PO DAILY 08/28/23 12/09/23 Unknown History Exam Airway Mallampati Class: I TM Dist: >3cm Neck ROM: Poor Loose/Missing/Broken Teeth: No Heart: rrr Lungs: cta Assessment and Plan Assessment Anesthesia Assessment: Anesthesia Plan Discussed Final Anesthetic Review NPO: Yes ASA Class: II Final Preanesthetic Review: No Changes in Pt Med Stat, Meds/Allgs Chart Reviewed, Consent Obtained/Reviewed and Anes Risks/Benef Reviewed Patient Risk: Intermediate Procedure Risk: Low Anesthetic Plan Anesthetic Plan: GA Disposition: Standard PACU
[2023-12-09] VITALS (7 sets, daily range): BP systolic 120–135; BP diastolic 56–67; PULSE 58–75; RESP 16–18; TEMP 36.3–36.6; O2SAT 95–99; BMI 32.2
--- NOTE | 2023-12-09 07:21 | MHC.SHP ---
Pre-Procedural Eval Section A - 24 Hr Update-Section A only Date of Service: 12/09/23 The patient is an INPATIENT: No Changes since office visit: Yes Patient answered all questions; No Cold of Flu in the past 2 weeks, No New Medical Problems and No Changes in Medication The patient has been examined within 24 hours of the surgical procedure. The History & Physical has been completed within 30 days and I have reviewed it.: No Section B - Complete if H&P > 30 days Chief Complaint: Umbilical hernia with obstruction, without gangren Details of Present Illness: No changes since initial evaluation Relevant Family History (Specify if Yes): No Relevant Social History: None Present Medications: see Short Stay Collaborative assessment Medical History: Significant History (hypertension) History of Previous Operations: No relevant previous surgery Allergies: Allergies Allergy/AdvReac Type Severity Reaction Status Date / Time No Known Allergies Allergy Verified 12/09/23 06:36 Review of Systems Sugical H&P ROS: Negative: Constitution, Cardiovascular, Respiratory, Neurological, Psychiatric, Hem-Onc, Allergic/Immunologic, Gastrointestinal, Genitourinary, Musculoskeletal, Integumentary, Endocrine and Eyes/Ears/Nose/Throat Exam Surgical H&P Exam: Normal: HEENT, Normal: Heart, Normal: Lungs, Normal: Extremities, Normal: Skin and Normal: Neurological and Significant Findings: Abdomen (umbilical hernia, reducible, 2 cm) Plan Diagnosis/Plan: Unchanged I have reviewed the history and physical and performed a pertinent physical examination on my patient. No changes have occurred unless specified. Time Spent With Patient Time: Total time managing care of this patient today ____ minutes.
--- NOTE | 2023-12-09 08:20 | P.OP_ITS ---
Operative Note Operative Note Date of Service: 12/09/23 Narrative: Preoperative diagnosis: Reducible umbilical hernia Postoperative diagnosis: Same Procedure: Repair of reducible umbilical hernia with mesh Surgeon: Rasheed Pacheco MD Ibm Mainframe Developer: Justine López PA-C Anesthesia: General LMA Indications for procedure: 83-year-old male patient with a previous history of an incarcerated umbilical hernia which was subsequently reduced. He was previously scheduled for repair of this umbilical hernia however developed COVID at the time of surgery therefore the surgery was canceled. He returns today for repair of the umbilical hernia with mesh. He denies any particular pain redness or discharge. Operative findings: 2 cm fascial defect umbilical hernia, reducible Specimen: None Estimated blood loss: Less than 2 mL Complications: None Procedure details: Patient was brought to the OR and placed in a supine position. After administering general anesthesia the patient's abdomen was prepped with ChloraPrep and draped in a sterile fashion. A surgical time-out was called the consent confirmed. Patient received preoperative antibiotics and Venodyne boots were in place. Local anesthesia consisting of 0.5% Sensorcaine was infiltrated in a transverse fashion directly over the umbilicus. This is followed by an incision with a 15 blade. Incision was carried out through skin and subcutaneous tissue up to the hernia sac. The hernia sac was then dissected using electrocautery down to the fascial edge. Umbilical skin was then lifted off the fascia using electrocautery. The hernia sac was then reduced into the abdominal cavity. A preperitoneal space was then created using a combination of blunt and electrocautery dissection. A 4.3 cm round Ventralex mesh was then obtained. This was deployed within the preperitoneal space and secured in 4 quadrants using a 0 Tycron suture. Fascia was then closed over the mesh using [id number] 0 Tycron sutures. Wounds were then irrigated with saline solution and suctioned dry. Umbilical skin was then reattached to the fascia using a 3-0 Polysorb suture. Dermis was closed using interrupted 3-0 Polysorb sutures. Skin was closed using a running subcuticular 4-0 Polysorb suture. Steri-Strips, 2 x 2 gauze and Tegaderm were then applied. The patient tolerated the procedure well. Sponge, instrument, needle count was reported as correct. The patient was transferred to PACU in stable condition.
== END 2023-12-09 09:48 | disposition home or self-care (01) ==
PROVIDERS: PCP Internal Medicine Medical Oncology; Visit Provider Surgery
PROC: (CPT 49591; principal; 2023-12-09 07:30)
DX: K42.0 Umbilical hernia with obstruction, without gangrene (principal); R06.09 Other forms of dyspnea; I10 Essential (primary) hypertension; E78.00 Pure hypercholesterolemia, unspecified; M10.9 Gout, unspecified; N40.0 Benign prostatic hyperplasia without lower urinary tract symptoms; Z79.899 Other long term (current) drug therapy; Z90.49 Acquired absence of other specified parts of digestive tract; Z98.890 Other specified postprocedural states; Z87.891 Personal history of nicotine dependence
CPT/HCPCS: 49591; C1781; J0131; J0690; J2250; J2704; J2795; J3010

== ENCOUNTER → 2023-12-09 05:55 | Outpatient (BNV) | payer MEDICARE, SELFPAY | PROVIDERS: PCP Internal Medicine Medical Oncology; Visit Provider Surgery | DX: K42.0 Umbilical hernia with obstruction, without gangrene (principal) | CPT/HCPCS: 49591 ==

== ENCOUNTER 2023-12-18 11:36 | Outpatient (AMB) | payer MEDICARE, SELFPAY ==
--- NOTE | 2023-12-18 11:38 | A.OFFVIS_ITS ---
Vital Signs 12/18/23 11:47 Weight 220 lb BP 148/68 H Blood Pressure Location Rt brachial Position Sitting Pulse 72 Intake Visit Reasons: S/P incarcerated umbilical hernia w/mesh Intake Note: This patient presents for a post-op assessment status post incarcerated umbilical hernia repair with mesh. Patient c/o; reports has a cold for the past few days, reports has been having cough spells and does not know if this has affected anything from his surgery. [employer] Required: No Accompanied by: Self / Same As Patient Allergies No Known Allergies Allergy (Verified 12/18/23 11:50) Medication List - Last Reconciled 12/20/23 by Rasheed Pacheco MD doxazosin 2 mg PO DAILY latanoprost 0.005% 1 drp ophthalmic (eye) BEDTIME lisinopril 20 mg PO DAILY oxycodone 5 mg PO Q6H PRN tadalafil 10 mg PO DAILY PRN tamsulosin 0.4 mg PO DAILY venlafaxine 50 mg PO DAILY vit C,F-Zw-hcwos-lutein-zeaxan 250-90-40-1 mg (PreserVision AREDS-2) 1 tab PO BID HPI Comments Details: 83-year-old male patient status post repair of an umbilical hernia with mesh. Postoperatively he developed an URI and has been coughing since the surgery. He denies any fever or chills. He did have some abdominal discomfort at the incision but generally feels improved. [facility] Medical History Lumbosacral radiculopathy Gout Elevated cholesterol Gastritis Glaucoma BPH (benign prostatic hyperplasia) Depression Osteoarthritis HTN (hypertension) Surgical History History of dental surgery History of lumbosacral spine surgery History of breast lump/mass excision History of laparoscopic cholecystectomy History of inguinal hernia repair, bilateral Family History Father No problems noted. Mother No problems noted. Social History Are you a primary child care education coordinator to a significant other at home: No Alcohol intake: current Alcohol intake frequency: holidays/special occasions only Comment: counts correct Patient Tobacco Use Status: Former Tobacco user Quit Date: 1969 Tobacco use type: Cigarette Years Smoked: 10 Current occupational status: retired Current occupation: rt hand Physical Exam Vital Signs: Last Vital Signs Pulse 72 12/18/23 11:47 BP 148/68 H 12/18/23 11:47 Const General: comfortable Nutritional Appearance: well nourished Orientation/consciousness: patient oriented x3 Resp Effort & Inspection: normal respiratory effort, no audible wheezes, Actively coughing and no respiratory distress GI Other: Abdominal incision in the umbilicus is clean, dry, and intact. No evidence of infection or hernia recurrence. No changes noted with Valsalva maneuvers. Neuro General: patient oriented x3 Extrem Other: No edema Assessment & Plan Assessment & Plan (1) Umbilical hernia, incarcerated: Code(s): K42.0 - Umbilical hernia with obstruction, without gangrene Category: Medical Plan 83-year-old male patient returning 1 week following repair of an umbilical hernia with mesh. Postop he developed an upper respiratory infection with associated cough. He was encouraged to hold pressure on his incision when coughing. He should continue to avoid lifting greater than 10 lb for the next 4 weeks. He will return at that time for follow-up examination. He is welcome to call sooner for any new concerns. Coding Level of Care Code Global (61662) Diagnoses Umbilical hernia, incarcerated K42.0
[2023-12-18 11:47] VITALS: BP 148/68; PULSE 72
== END 2023-12-18 11:56 | disposition home or self-care (01) ==
PROVIDERS: PCP Internal Medicine Medical Oncology; Visit Provider Surgery
DX: K42.0 Umbilical hernia with obstruction, without gangrene (principal)
CPT/HCPCS: 99212

== ENCOUNTER → 2023-12-18 11:36 | Outpatient (BNVA) | payer MEDICARE, SELFPAY | PROVIDERS: PCP Internal Medicine Medical Oncology; Visit Provider Surgery | DX: K42.0 Umbilical hernia with obstruction, without gangrene (principal) | CPT/HCPCS: 99212 ==

== ENCOUNTER 2024-01-19 10:13 | Outpatient (AMB) | payer MEDICARE, SELFPAY ==
--- NOTE | 2024-01-19 10:15 | MHC.OFFVIS ---
Vital Signs 01/19/24 10:20 Height 5 ft 8.5 in Weight 219 lb BMI 32.8 BP 130/59 L Blood Pressure Location Lt brachial Position Sitting Pulse 62 Intake Visit Reasons: 1 mth follow up S/P incarcerated umbilical hernia Intake Note: Patient is seen in office for one month follow up visit, post umbilical hernia repair. Pt c/o: denies any concerns at the time of visit [employer] Employee Required: No Accompanied by: Self / Same As Patient Allergies No Known Allergies Allergy (Verified 01/19/24 10:21) Medication List - Last Reconciled 01/19/24 by Rasheed Pacheco MD doxazosin 2 mg PO DAILY latanoprost 0.005% 1 drp ophthalmic (eye) BEDTIME lisinopril 20 mg PO DAILY tadalafil 10 mg PO DAILY PRN tamsulosin 0.4 mg PO DAILY venlafaxine 50 mg PO DAILY vit C,E-Vz-mqaur-lutein-zeaxan 250-90-40-1 mg (PreserVision AREDS-2) 1 tab PO BID HPI Comments Details: Patient returns 1 month following repair of an incarcerated umbilical hernia with mesh. He tolerated the procedure well and his wounds are healing nicely. Denies any ongoing abdominal symptoms related to the hernia. [facility] Medical History Lumbosacral radiculopathy Gout Elevated cholesterol Gastritis Glaucoma BPH (benign prostatic hyperplasia) Depression Osteoarthritis HTN (hypertension) Surgical History H/O umbilical hernia repair (12/09/23) History of dental surgery History of lumbosacral spine surgery History of breast lump/mass excision History of laparoscopic cholecystectomy History of inguinal hernia repair, bilateral Family History Father No problems noted. Mother No problems noted. Social History Are you a primary ambulatory care coordinator to a significant other at home: No Alcohol intake: current Alcohol intake frequency: holidays/special occasions only Comment: counts correct Patient Tobacco Use Status: Former Tobacco user Tobacco use type: Cigarette Years Smoked: 10 Current occupational status: retired Current occupation: rt hand Physical Exam Vital Signs: Last Vital Signs Pulse 62 01/19/24 10:20 BP 130/59 L 01/19/24 10:20 BMI result Body Mass Index 32.8 Const General: comfortable Nutritional Appearance: well nourished Orientation/consciousness: patient oriented x3 Resp Effort & Inspection: normal respiratory effort, no audible wheezes, Actively coughing and no respiratory distress GI Other: Abdominal incision in the umbilicus is clean, dry, and intact. No evidence of infection or hernia recurrence. No changes noted with Valsalva maneuvers. Neuro General: patient oriented x3 Extrem Other: No edema Assessment & Plan Assessment & Plan (1) Umbilical hernia, incarcerated: Code(s): K42.0 - Umbilical hernia with obstruction, without gangrene Category: Medical Plan 83-year-old male patient status post repair of an umbilical hernia with mesh returning 1 month for postop examination. His wounds are clean, dry, and intact without redness or discharge. No evidence of wound infection or hernia recurrence. He may resume normal activity without restriction and should follow up as needed. Coding Level of Care Code Global (30079) Diagnoses Umbilical hernia, incarcerated K42.0
[2024-01-19 10:20] VITALS: BP 130/59; PULSE 62; BMI 32.8
== END 2024-01-19 10:34 | disposition home or self-care (01) ==
PROVIDERS: PCP Internal Medicine Medical Oncology; Visit Provider Surgery
DX: K42.0 Umbilical hernia with obstruction, without gangrene (principal)
CPT/HCPCS: 99212

== ENCOUNTER → 2024-01-19 10:13 | Outpatient (BNVA) | payer MEDICARE, SELFPAY | PROVIDERS: PCP Internal Medicine Medical Oncology; Visit Provider Surgery | DX: Z09 Encounter for follow-up examination after completed treatment for conditions other than malignant neoplasm (principal); Z87.19 Personal history of other diseases of the digestive system | CPT/HCPCS: 99212 ==

== ENCOUNTER 2024-10-27 07:27 | Outpatient (REF) | payer MEDICARE, SELFPAY ==
[2024-10-27 07:52] LABS: MANUAL DIFF FLAG NO
[2024-10-27 08:36] LABS: Basophils Percent Auto 0.6 % (0-2); Eosinophils Absolute Auto 0.2 X10*3/uL (0.0-0.4); Eosinophils Percent Auto 2.3 % (0-4); Hematocrit 46.3 % (42.0-52.0); Hemoglobin 15.7 g/dl (14.0-18.0); Imm Gran Abs Auto 0.03 X10*3/uL (0.00-0.03); Imm Gran Pct Auto 0.5 % (0.0-0.4); Lymphocytes Absolute Auto 1.5 X10*3/uL (1.2-4.9); Lymphocytes Percent Auto 23.1 % (20-40); Mean Corpuscular HGB Conc 33.9 g/dl (31.0-36.0); Mean Corpuscular Volume 94.3 fL (80.0-98.0); Mean Platelet Volume 9.7 fL (9.4-12.4); Monocytes Absolute Auto 0.8 X10*3/uL (0.1-1.2); Monocytes Percent Auto 12.7 % (2-11); Neutrophils Percent Auto 60.8 % (45-73); Platelet Count 195 X10*3/uL (160-400); Red Blood Count 4.91 X10*6/uL (4.60-5.80); Red Cell Distribution Width 13.1 % (11.0-16.0); White Blood Count 6.6 X10*3/uL (4.8-10.8)
[2024-10-27 09:03] LABS: Alanine Aminotransferase 13 U/L (0-40); Albumin Level 4.1 g/dL (3.5-5.0); Alkaline Phosphatase 67 U/L (39-117); Anion Gap 8 (12-20); Aspartate Amino Transferase 16 U/L (5-37); Bilirubin Total 0.8 mg/dL (0.0-1.0); Blood Urea Nitrogen 24 mg/dL (9-16); Calcium 9.4 mg/dL (8.4-10.2); Carbon Dioxide 28 mmol/L (22-29); Chloride 110 mmol/L (96-108); Cholesterol 135 mg/dL (<200); Estimated Glomerular Filt Rate > 60; Glucose Fasting 105 mg/dL (60-99); HDL Cholesterol 37 mg/dL (>40); LDL Cholesterol Calculated 76 mg/dL (<100); Potassium 4.3 mmol/L (3.3-5.1); Sodium 142 mmol/L (135-145); Triglycerides 112 mg/dL (<150)
[2024-10-27 09:16] LABS: Prostate Specific Antigen 2.42 ng/mL (<0.05-4.0)
[2024-10-27 09:17] LABS: Vitamin D 25-OH Total 51.4 ng/mL (>30)
== END 2024-10-27 07:28 | disposition home or self-care (01) ==
LOC: HO.LAB 07:27
PROVIDERS: PCP Internal Medicine Medical Oncology; Visit Provider Internal Medicine Medical Oncology
DX: Z12.5 Encounter for screening for malignant neoplasm of prostate (principal); N40.1 Benign prostatic hyperplasia with lower urinary tract symptoms; E78.5 Hyperlipidemia, unspecified; E66.9 Obesity, unspecified; E55.9 Vitamin D deficiency, unspecified
CPT/HCPCS: 36415; 80053; 80061; 82306; 84153; 85025

== ENCOUNTER 2025-05-11 07:57 | Outpatient (REF) | payer MEDICARE, SELFPAY ==
--- NOTE | ~2025-05-11 | XR_ITS ---
EXAMINATION: XR CERVICAL SPINE 2-3 VIEWS HISTORY: NECK PAIN COMPARISON: There are no prior studies available for comparison. FINDINGS: AP, lateral, and open-mouth odontoid views of the cervical spine are submitted. Osseous mineralization is normal. Seven cervical vertebral bodies are identified maintaining normal height without evidence of fracture or subluxation. There is straightening of the normal cervical lordosis. There is diffuse moderate degenerative disc disease with disc space narrowing and osteophyte formation. Flowing anterior osteophytes are compatible with DISH. There is degenerative change of the facet joints on the left. The odontoid and lateral masses of C1 are intact. There is no prevertebral soft tissue swelling. XR/XR cervical spine 3V IMPRESSION: Straightening of the normal cervical lordosis. Findings consistent with DISH. Moderate degenerative disc disease. Electronically signed by: Franky Almonte MD 05/11/2025 10:31 AM EDT
[2025-05-11 08:13] LABS: MANUAL DIFF FLAG NO
[2025-05-11 08:34] LABS: Hematocrit 43.2 % (42.0-52.0); Hemoglobin 14.7 g/dl (14.0-18.0); Imm Gran Abs Auto 0.01 X10*3/uL (0.00-0.03); Imm Gran Pct Auto 0.2 % (0.0-0.4); Lymphocytes Absolute Auto 2.0 X10*3/uL (1.2-4.9); Mean Corpuscular HGB Conc 34.0 g/dl (31.0-36.0); Mean Corpuscular Hemoglobin 32.2 pg (27.0-33.0); Mean Corpuscular Volume 94.7 fL (80.0-98.0); NRBC Abs Auto 0.000 X10*3/uL (0.0-0.012); NRBC Pct Auto 0.0 /100WBC (0.0-0.2); Platelet Count 186 X10*3/uL (160-400); Red Blood Count 4.56 X10*6/uL (4.60-5.80); White Blood Count 5.6 X10*3/uL (4.8-10.8)
[2025-05-11 09:02] LABS: Alanine Aminotransferase 28 U/L (0-40); Albumin Level 4.2 g/dL (3.5-5.0); Alkaline Phosphatase 60 U/L (39-117); Anion Gap 9 (12-20); Aspartate Amino Transferase 23 U/L (5-37); Blood Urea Nitrogen 29 mg/dL (9-16); Calcium 9.7 mg/dL (8.4-10.2); Carbon Dioxide 29 mmol/L (22-29); Chloride 110 mmol/L (96-108); Cholesterol 149 mg/dL (<200); Estimated Glomerular Filt Rate 51; HDL Cholesterol 36 mg/dL (>40); Potassium 4.4 mmol/L (3.3-5.1); Sodium 144 mmol/L (135-145); Total Protein 6.8 g/dL (6.5-8.0); Triglycerides 109 mg/dL (<150)
[2025-05-11 09:21] LABS: Prostate Specific Antigen 1.49 ng/mL (<0.05-4.0)
== END 2025-05-11 07:58 | disposition home or self-care (01) ==
LOC: HO.LAB 07:57
PROVIDERS: PCP Internal Medicine Medical Oncology; Visit Provider Internal Medicine Medical Oncology
DX: N40.1 Benign prostatic hyperplasia with lower urinary tract symptoms (principal); E78.5 Hyperlipidemia, unspecified; E66.9 Obesity, unspecified; M54.2 Cervicalgia; Z12.5 Encounter for screening for malignant neoplasm of prostate
CPT/HCPCS: 36415; 72040; 80053; 80061; 84153; 85025

== ENCOUNTER → 2025-05-11 10:20 | Outpatient (BNV) | payer MEDICARE, SELFPAY | PROVIDERS: PCP Internal Medicine Medical Oncology; Visit Provider Radiology Diagnostic Radiology | DX: M50.30 Other cervical disc degeneration, unspecified cervical region (principal) | CPT/HCPCS: 72040 ==